=== PATIENT | female | born 1990 | race Two or more races ===

== ENCOUNTER 2018-12-02 17:30 | Emergency (ER) | payer MEDICAID ==
[~2018-12-02] VITALS: Ht 149.9 cm; Wt 90.7 kg
[2018-12-02 19:00] LABS: Basophils # (auto) 0 uL; Basophils % (auto) 0.3 % (0.0-2.0); Eosinophils # (auto) 0.1 uL; Eosinophils % (auto) 1.4 % (0.0-7.0); Hematocrit 41.4 % (36.0-46.0); Hemoglobin 13.7 g/dL (12.2-16.2); Lymphocytes # (auto) 2.2 uL; Lymphocytes % (auto) 24.9 % (10.0-50.0); Mean Corpuscular Hgb Conc. 33.1 g/dL (32.0-36.0); Mean Corpuscular Volume 87.7 fL (80.0-100.0); Monocytes # (auto) 0.6 uL; Monocytes % (auto) 6.7 % (0.0-12.0); Neutrophils # (auto) 5.8 uL; Neutrophils % (auto) 66.7 % (37.0-80.0); Nucleated Red Blood Cells % 0.1 %; Platelet Count (auto) 234 10^3/uL (140-450); Red Blood Cells 4.73 10^6/uL (4.0-5.20); Red Cell Distribution Width 13.5 % (11.8-14.3); White Blood Cell 8.8 10^3/uL (4.4-10.8)
[2018-12-02 19:07] LABS: Albumin 3.7 g/dL (3.4-5.0); BUN/Creatinine Ratio 9.8; Calcium 8.7 mg/dL (8.5-10.1); Potassium 3.7 mmol/L (3.5-5.1)
[2018-12-02 19:10] LABS: Bilirubin, Total 0.3 mg/dL (0.2-1.0); Total Protein 7.6 g/dL (6.4-8.2)
[2018-12-02 20:08] LABS: Urine Bacteria MANY /hpf (None Seen); Urine Blood Negative /uL (Negative); Urine Mucus FEW (None Seen); Urine Specific Gravity 1.009 (1.001-1.035); Urine WBC 4 /hpf (0 - 5)
[2018-12-03] MEDS ORDERED: cefTRIAXone SOD 1,000 MG VL ONE (04:55)
[2018-12-03 05:00] VITALS: BP 135/77
[2018-12-03] MEDS ORDERED: cefTRIAXone SOD 1,000 MG VL IM ONE (05:00)
[2018-12-03] MEDS ORDERED: AZITHROMYCIN 250 MG TAB PO ONE (05:00)
[2018-12-03] MEDS ORDERED: DexAMETHasone SOD PHOS 10MG/1ML VIAL INJ IM ONE (05:00)
== END 2018-12-03 06:28 | disposition home or self-care (01) ==
LOC: ER 17:30
DX: N73.0 Acute parametritis and pelvic cellulitis (principal)
CPT/HCPCS: 36415; 74176; 80053; 81001; 81025; 82150; 83690; 85025; 96372; 99284; J0696; J1100

== ENCOUNTER 2021-05-03 13:50 | Emergency (ER) | payer MEDICAID ==
[~2021-05-03] VITALS: Ht 149.9 cm; Wt 65.3 kg
[2021-05-03 15:25] VITALS: BP 141/69
[2021-05-03] MEDS ORDERED: DexAMETHasone SOD PHOS 10MG/1ML VIAL INJ IM ONE (16:00)
[2021-05-03] MEDS ORDERED: cefTRIAXone SOD 1,000 MG VL IM ONE (16:30)
== END 2021-05-03 16:38 | disposition home or self-care (01) ==
LOC: ER 13:51
DX: J20.9 Acute bronchitis, unspecified (principal); J02.9 Acute pharyngitis, unspecified; Z20.822 Contact with and (suspected) exposure to COVID-19
CPT/HCPCS: 36415; 71046; 87426; 96372; 99284; J0696; J1100

== ENCOUNTER 2021-12-17 22:17 | Emergency (ER) | payer MEDICAID ==
[~2021-12-17] VITALS: Ht 152.4 cm; Wt 103.0 kg
[2021-12-17 23:16] LABS: Basophils # (auto) 0 10 ^3/uL (0-0.2); Basophils % (auto) 0.5 % (0.0-2.0); Eosinophils # (auto) 0.1 10 ^3/uL (0-0.8); Hematocrit 41.8 % (36.0-46.0); Hemoglobin 14.4 g/dL (12.2-16.2); Lymphocytes # (auto) 2.1 10 ^3/uL (0.4-5.4); Lymphocytes % (auto) 29.9 % (10.0-50.0); Mean Corpuscular Hemoglobin 29.3 pg (28.0-32.0); Mean Corpuscular Hgb Conc. 34.4 g/dL (32.0-36.0); Mean Corpuscular Volume 85.2 fL (80.0-100.0); Monocytes # (auto) 0.3 10 ^3/uL (0-1.3); Monocytes % (auto) 4.6 % (0.0-12.0); Neutrophils # (auto) 4.5 10 ^3/uL (1.6-8.6); Red Cell Distribution Width 13.3 % (11.8-14.3); White Blood Cell 7.1 10^3/uL (4.4-10.8)
[2021-12-17 23:24] LABS: INR 0.99 (0.9-1.15); Partial Thromboplastin Time 25.7 sec (23.6-33.0)
[2021-12-17 23:28] LABS: Albumin 3.7 g/dL (3.4-5.0); Magnesium 2.2 mg/dL (1.6-2.6); Potassium 3.6 mmol/L (3.5-5.1)
[2021-12-17 23:32] LABS: BUN/Creatinine Ratio 14.1; Bilirubin, Total 0.4 mg/dL (0.2-1.0); Total Protein 7.6 g/dL (6.4-8.2)
[2021-12-17 23:43] LABS: Beta HCG, Quantitative < 1 mlU/mL (1-3); Thyroid Stimulating Hormone 1.11 uIU/mL (0.358-3.74)
[2021-12-18 09:03] LABS: Urine Bacteria NONE SEEN /hpf (None Seen); Urine Blood Negative /uL (Negative); Urine Specific Gravity 1.016 (1.001-1.035); Urine WBC 1 /hpf (0 - 5)
[2021-12-18] MEDS ORDERED: METH4PAK PO (09:22)
[2021-12-18 10:00] VITALS: BP 126/88
== END 2021-12-18 10:30 | disposition home or self-care (01) ==
LOC: ER 22:17
DX: R06.02 Shortness of breath (principal); R09.1 Pleurisy; Z20.822 Contact with and (suspected) exposure to COVID-19
CPT/HCPCS: 36415; 71045; 80053; 81001; 83735; 83880; 84443; 84484; 84702; 85025; 85610; 85730; 93005

== ENCOUNTER 2022-05-11 11:40 | Emergency (ER) | payer MEDICAID ==
[~2022-05-11] VITALS: Ht 149.9 cm; Wt 80.0 kg
[~2022-05-11 11:40] MED LIST: METH4PAK PO
[2022-05-11] MEDS ORDERED: SODIUM CHLORIDE 0.9% 1,000 ML IVB ONE (12:30)
[2022-05-11] MEDS ORDERED: DONNATAL 5ml ORAL Elix (BELLADONNA ALK-PHENOBARB) PO ONE (12:30)
[2022-05-11] MEDS ORDERED: ALUM & MAG HYDROX-SIMETH LIQ(MAALOX) 30 ML PO ONE (12:30)
[2022-05-11 12:37] LABS: Basophils # (auto) 0 10 ^3/uL (0-0.2); Basophils % (auto) 0.5 % (0.0-2.0); Eosinophils # (auto) 0 10 ^3/uL (0-0.8); Eosinophils % (auto) 0.6 % (0.0-7.0); Hematocrit 41.7 % (36.0-46.0); Hemoglobin 13.8 g/dL (12.2-16.2); Lymphocytes # (auto) 1.6 10 ^3/uL (0.4-5.4); Lymphocytes % (auto) 20.3 % (10.0-50.0); Mean Corpuscular Hemoglobin 28.3 pg (28.0-32.0); Mean Corpuscular Hgb Conc. 33.1 g/dL (32.0-36.0); Mean Corpuscular Volume 85.4 fL (80.0-100.0); Monocytes # (auto) 0.4 10 ^3/uL (0-1.3); Monocytes % (auto) 5.4 % (0.0-12.0); Neutrophils # (auto) 5.6 10 ^3/uL (1.6-8.6); Neutrophils % (auto) 73.2 % (37.0-80.0); Red Blood Cells 4.88 10^6/uL (4.0-5.20); Red Cell Distribution Width 13.2 % (11.8-14.3); White Blood Cell 7.7 10^3/uL (4.4-10.8)
[2022-05-11 12:56] LABS: Albumin 3.5 g/dL (3.4-5.0); Calcium 8.5 mg/dL (8.5-10.1); Potassium 4.2 mmol/L (3.5-5.1)
[2022-05-11 13:00] LABS: BUN/Creatinine Ratio 9.5; Bilirubin, Total 0.4 mg/dL (0.2-1.0); Total Protein 7.7 g/dL (6.4-8.2)
[2022-05-11 13:35] LABS: Urine Bacteria FEW /hpf (None Seen); Urine Blood Negative /uL (Negative); Urine Specific Gravity 1.003 (1.001-1.035); Urine WBC 1 /hpf (0 - 5)
[2022-05-11 23:54] VITALS: BP 128/78
[2022-05-12] MEDS ORDERED: FAMO20TA10 PO (00:06)
== END 2022-05-12 02:24 | disposition home or self-care (01) ==
LOC: ER 11:40
DX: R10.13 Epigastric pain (principal); R11.2 Nausea with vomiting, unspecified
CPT/HCPCS: 36415; 76705; 76856; 80053; 81001; 83605; 83690; 84702; 85025; 96360; 99284; J7030

== ENCOUNTER 2023-07-16 16:18 | Emergency (ER) | payer MEDICAID ==
[~2023-07-16] VITALS: Ht 152.4 cm; Wt 71.4 kg
[~2023-07-16 16:18] MED LIST changes: +FAMO20TA10 PO
[2023-07-16 18:32] VITALS: BP 120/71; PULSE 100; RESP 16; TEMP 98.2; O2SAT 97
[2023-07-16] MEDS ORDERED: LIDOCAINE 1% HCL (LOCAL ANESTH.) INJ 20ML MDV IJ ONE (19:15)
[2023-07-16] MEDS ORDERED: KETOROLAC TROMETH 30 MG/ML 1ML VIAL IV ONE (19:45)
[2023-07-16] MEDS ORDERED: cefTRIAXone SOD 1,000 MG VL IM ONE (19:45)
[2023-07-16] MEDS ORDERED: CEFI400C3 PO (19:57)
[2023-07-16] MEDS ORDERED: CLIN300C70 PO (19:57)
[2023-07-16] MEDS ORDERED: KETOROLAC TROMETH 30 MG/ML 1ML VIAL IM ONE (20:15)
== END 2023-07-16 20:15 | disposition home or self-care (01) ==
LOC: ER 16:18
DX: N75.1 Abscess of Bartholin's gland (principal); Z98.890 Other specified postprocedural states; Z79.899 Other long term (current) drug therapy
CPT/HCPCS: 56420; 96372; 99284; J0696; J1885; J2001

== ENCOUNTER 2025-01-26 03:37 | Inpatient (IN) | payer MEDICAID, OTHER ==
[~2025-01-26] VITALS: Ht 152.4 cm; Wt 82.9 kg
[~2025-01-26 03:37] MED LIST changes: +CEFI400C3 PO; +CLIN1CAP70 PO
--- NOTE | 2025-01-26 04:20 | ED.PDOC ---
GI ASSESSMENT HPI Comments C/C: RIGHT SIDE UPPER ABDOMINAL PAIN FOR THE PAST 2 DAYS. PATIENT STATES THAT SHE HAS PMH OF A GASTRIC SLEEVE AND USUALLY BURPS A LOT. ALL VSS. Does report some nausea without vomiting. Denies chest pain, difficulty breathing, shortness of breath, diarrhea, recent travel or known ill contacts. Reports no fevers or chills. Chief Complaint: Abdominal Pain Time Seen by MD: 04:06 Primary Care Provider: UNKNOWN Reviewed Notes: Nurses Notes, Medications, Allergies Allergies: Coded Allergies: NO KNOWN ALLERGIES (Unverified , 03/26/15) Home Meds Active Scripts Docusate Sodium (Colace) 100 Mg Cap, 1 CAP PO BID, #30 CAP Prov:DEXTER MUSA HISTORY FACULTY MEMBER 01/30/25 Amoxicillin & Pot Clavulanate (Augmentin) 500 Mg Tab, 1 TAB PO BID for 7 Days, #14 TAB Prov:DEXTER MUSA HISTORY FACULTY MEMBER 01/30/25 Oxycodone W/ Acetaminophen (Percocet 5/325MG) 1 Tab Tb, 1 TAB PO TID for 5 Days, #15 TAB Prov:DEXTER MUSA HISTORY FACULTY MEMBER 01/30/25 Discontinued Scripts Clindamycin Hcl (Clindamycin Hcl) 300 Mg Cap, 300 MG PO QID for 7 Days, #28 CAP Prov:ADELFO MEJIA 07/16/23 Cefixime (Cefixime) 400 Mg Cap, 400 MG PO BID for 7 Days, #14 CAP Prov:ADELFO MEJIA 07/16/23 Famotidine (PEPCID TABLET) 20 Mg Tb, 1 TAB PO BID PRN, #60 TAB 5 Refills Prov:YECENIA HARP 05/12/22 Methylprednisolone (Medrol Dosepak) 4 Mg Dinesh, 4 MG PO UD for 5 Days, #21 TAB UAD Prov:RYAN BOOKER MD 12/18/21 Information Source: Patient Mode of Arrival: Ambulatory Past Medical History PAST MEDICAL HISTORY: Denies Surgical History: EARLY HEAD START DIRECTOR History: No Pertinent EARLY HEAD START DIRECTOR History Family History Family History: No family hx of HTN Social History Smoker: Non-Smoker Alcohol: Denies ETOH Use Drugs: Denies Drug Use Lives In: Home Constitutional: denies: chills, diaphoresis, fatigue, fever, malaise, sweats, weakness, others EENTM: denies: blurred vision, double vision, ear bleeding, ear discharge, ear drainage, ear pain, ear ringing, eye pain, eye redness, hearing loss, mouth pain, mouth swelling, nasal discharge, nose bleeding, nose congestion, nose pain, photophobia, tearing, throat pain, throat swelling, voice changes, others Respiratory: denies: cough, hemoptysis, orthopnea, SOB at rest, shortness of breath, SOB with excertion, stridor, wheezing, others Cardiovascular: denies: chest pain, dizzy spells, diaphoresis, Dyspnea on exertion, edema, irregular heart beat, left arm pain, lightheadedness, palpitations, PND, syncope, others Gastrointestinal: reports: abdominal pain, nausea; denies: abdomen distended, blood streaked bowels, constipated, diarrhea, dysphagia, difficulty swallowing, hematemesis, melena, poor appetite, poor fluid intake, rectal bleeding, rectal pain, vomiting, others Genitourinary: denies: abnormal vagina bleeding, burning, dyspareunia, dysuria, flank pain, frequency, hematuria, incontinence, pain, , vagina discharge, urgency, others Neurological: denies: dizziness, fainting, headache, left sided numbness, left sided weakness, numbness, paresthesia, pre-existing deficit, right sided numbness, right sided weakness, seizure, speech problems, tingling, tremors, weakness, others Musculoskeletal: denies: back pain, gout, joint pain, joint swelling, muscle p ain, muscle stiffness, neck pain, others Integumetry: denies: bruises, change in color, change in hair/nails, dryness, laceration, lesions, lumps, rash, wounds, others Allergic/Immunocompromised: denies: Difficulty Healing, Frequent Infections, Hives, Itching, others Hematologic/Lymphatic: denies: anemia, blood clots, easy bleeding, easy bruising, swollen glands, others Endocrine: denies: excessive hunger, excessive sweating, excessive thirst, excessive urination, flushing, intolerance to cold, intolerance to heat, unexplained weight gain, unexplained weight loss, others Psychiatric: denies: anxiety, bipolar disorder, depression, hopeless, panic disorder, schizophrenia, sleepless, suicidal, others Physical Exam General Appearance: Moderate Distress, Normal HEENT: Pharynx Normal Neck: Full Range of Motion, Non-Tender Respiratory: Lungs Clear, No Respiratory Distress, Normal Breath Sounds Cardiovascular: No Edema, No JVD, No Murmur, No Gallop, Normal Peripheral Pulses, Regular Rate/Rhythm Breast Exam: Deferred Gastrointestinal: Diffuse, No Organomegaly, No Pulsatile Mass, Normal Bowel Sounds, Soft, Tenderness (Right upper, mid and lower quadrant) Genitalia: Deferred Pelvic: Deferred Rectal: Deferred Extremities: No calf tenderness, Normal capillary refill, Normal inspection, Normal range of motion, Non-tender, No pedal edema Musculoskeletal : Apperance: Normal Neurologic: Alert, bench inspector II-XII nml as Tested, No Motor Deficits, Normal Affect, Normal Mood, No Sensory Deficits Cerebellar Function: NOT DONE Reflexes: NOT DONE Skin: Dry, Normal Color, Warm Peripheral Pulses: 3+ Radial (R), 3+ Radial (L) Lymphatic: No Adenopathy Was a procedure done? Was a procedure done?: No GI differential Dx Differential Diagnosis: Cholangitis, Cholecystitis, Constipation, Diverticular disease, Esophagitis, Gastritis/PUD, Gastroenteritis, Hernia, UTI X-Ray, Labs, Meds, VS Vital Signs Date Time Temp Pulse Resp B/P (MAP) Pulse Ox O2 Delivery O2 Flow Rate FiO2 01/26/25 05:50 98.4 65 12 137/89 (105) 98 98.4 01/26/25 04:30 Room Air* 0 21 01/26/25 03:50 98.8 75 16 125/71 (89) 96 98.8 Lab Test 01/26/25 07:30 01/26/25 04:22 Range/Units Urine Color Light-yellow Yellow Urine Clarity Clear Clear Urine pH 7.0 5.0-9.0 Urine Specific [place] 1.018 1.001-1.035 Urine Protein Negative Negative Urine Ketones Negative Negative Urine Blood Negative Negative /uL Urine Nitrite Negative Negative Urine Bilirubin Negative Negative Urine Urobilinogen Normal Negative mg/dL Urine Leukocyte Esterase Negative Negative /uL Urine RBC 5 0 - 4 /hpf Urine Microscopic WBC 1 0-5 /HPF Urine Squamous Epithelial Cells Few <5 /hpf Urine Bacteria None seen None Seen /hpf Urine Mucus Few None Seen Urine Glucose Normal Normal mg/dL White Blood Count 9.5 4.4-10.8 10^3/uL Red Blood Count 4.82 4.0-5.20 10^6/uL Hemoglobin 14.2 12.2-16.2 g/dL Hematocrit 41.6 36.0-46.0 % Mean Corpuscular Volume 86.5 80.0-100.0 fL Mean Corpuscular Hemoglobin 29.4 28.0-32.0 pg Mean Corpuscular Hemoglobin Concent 34.0 32.0-36.0 g/dL Red Cell Distribution Width 12.7 11.8-14.3 % Platelet Count 282 140-450 10^3/uL Mean Platelet Volume 8.6 6.9-10.8 fL Neutrophils (%) (Auto) 59.6 37.0-80.0 % Lymphocytes (%) (Auto) 33.8 10.0-50.0 % Monocytes (%) (Auto) 4.3 0.0-12.0 % Eosinophils (%) (Auto) 1.6 0.0-7.0 % Basophils (%) (Auto) 0.7 0.0-2.0 % Neutrophils # (Auto) 5.7 1.6-8.6 10 ^3/uL Lymphocytes # (Auto) 3.2 0.4-5.4 10 ^3/uL Monocytes # (Auto) 0.4 0-1.3 10 ^3/uL Eosinophils # (Auto) 0.1 0-0.8 10 ^3/uL Basophils # (Auto) 0.1 0-0.2 10 ^3/uL Nucleated Red Blood Cells 0.1 % Prothrombin Time 10.0 9.3-11.8 sec Prothrombin Time INR 0.94 0.9-1.15 Activated Partial Thromboplast Time 24.9 24.5-34.5 SEC Sodium Level 140 136-145 mmol/L Potassium Level 4.3 3.5-5.1 mmol/L Chloride Level 104 98-107 mmol/L Carbon Dioxide Level 28 20-31 mmol/L Anion Gap 8 5-15 Blood Urea Nitrogen 8 L 9-23 mg/dL Creatinine 0.73 0.550-1.02 mg/dL Glomerular Filtration Rate Calc 112 >90 mL/min BUN/Creatinine Ratio 11.0 10.0-20.0 Serum Glucose 104 74-106 mg/dL Calcium Level 10.5 H 8.7-10.4 mg/dL Total Bilirubin 0.4 0.2-1.0 mg/dL Aspartate Amino Transferase (AST) 13 13-40 U/L Alanine Aminotransferase (ALT) 16 7-40 U/L Alkaline Phosphatase 81 46-116 U/L Total Protein 7.4 5.7-8.2 g/dL Albumin 4.8 3.2-4.8 g/dL Lipase 47 12-53 U/L Beta HCG, Quantitative 0.6 L 1.5-4.2 mIU/mL Patient alert. Came in for abdominal pain. Vitals stable. Answering questions. Lipase within normal limits. Liver function within normal limits. Possibly need HIDA scan. Ultrasound does reveal thickened gallbladder possible acute cholecystitis. WBC within normal limits. Continues to have abdominal pain. Was given morphine. Was given Zofran. Continue to monitor. X-Ray, Labs, Meds, VS Comment CT ABDOMEN SHOWS DISTENDED GALLBLADDER RECOMMEND RIGHT UPPER QUADRANT ULTRASOUND Time of 1ST Reevaluation: 04:20 Reevaluation 1ST: Unchanged Time of 2ND Reevaluation: 06:07 Reevaluation 2ND: Improved Patient Education/Counseling: Diagnosis, Treatment, Prognosis, Need For Follow Up Family Education/Counseling: No Family Present Departure 1 Departure Time of Disposition: 07:33 Impression: Primary Impression: Acute abdominal pain Additional Impression: Gallbladder disease Disposition: ADMITTED INPATIENT Admit to: Med Surg Condition: Guarded e-Prescriptions Docusate Sodium (Colace) 100 Mg Cap 1 CAP PO BID, #30 CAP Prov: DEXTER MUSA HISTORY FACULTY MEMBER 01/30/25 Amoxicillin & Pot Clavulanate (Augmentin) 500 Mg Tab 1 TAB PO BID for 7 Days, #14 TAB Prov: DEXTER MUSA HISTORY FACULTY MEMBER 01/30/25 Oxycodone W/ Acetaminophen (Percocet 5/325MG) 1 Tab Tb 1 TAB PO TID for 5 Days, #15 TAB Prov: DEXTER MUSA HISTORY FACULTY MEMBER 01/30/25 Critical Care Note Critical Care Time?: No Stability Stability form required: No Heart Score Heart Score: Heart Score Response (Comments) Value History N/A 0 EKG N/A 0 Age N/A 0 Risk Factors N/A 0 Troponin N/A 0 Total 0 SIVA HARMON January 26, 2025 04:20 RYAN BOOKER MD January 26, 2025 07:33
[2025-01-26 04:38] LABS: Basophils # (auto) 0.1 10 ^3/uL (0-0.2); Basophils % (auto) 0.7 % (0.0-2.0); Eosinophils # (auto) 0.1 10 ^3/uL (0-0.8); Eosinophils % (auto) 1.6 % (0.0-7.0); Hematocrit 41.6 % (36.0-46.0); Hemoglobin 14.2 g/dL (12.2-16.2); Lymphocytes # (auto) 3.2 10 ^3/uL (0.4-5.4); Lymphocytes % (auto) 33.8 % (10.0-50.0); Mean Corpuscular Hemoglobin 29.4 pg (28.0-32.0); Mean Corpuscular Volume 86.5 fL (80.0-100.0); Monocytes # (auto) 0.4 10 ^3/uL (0-1.3); Monocytes % (auto) 4.3 % (0.0-12.0); Neutrophils # (auto) 5.7 10 ^3/uL (1.6-8.6); Neutrophils % (auto) 59.6 % (37.0-80.0); Nucleated Red Blood Cells % 0.1 %; Platelet Count (auto) 282 10^3/uL (140-450); Red Blood Cells 4.82 10^6/uL (4.0-5.20); Red Cell Distribution Width 12.7 % (11.8-14.3); White Blood Cell 9.5 10^3/uL (4.4-10.8)
[2025-01-26 05:06] LABS: Alanine Aminotransferase 16 U/L (7-40); Alkaline Phosphatase 81 U/L (46-116); Anion Gap 8 (5-15); Bilirubin, Total 0.4 mg/dL (0.2-1.0); Carbon Dioxide 28 mmol/L (20-31); Chloride 104 mmol/L (98-107); Glucose 104 mg/dL (74-106); Lipase 47 U/L (12-53); Potassium 4.3 mmol/L (3.5-5.1); Sodium 140 mmol/L (136-145); Total Protein 7.4 g/dL (5.7-8.2)
[2025-01-26 05:13] LABS: Albumin 4.8 g/dL (3.2-4.8); Aspartate Aminotransferase 13 U/L (13-40); Blood Urea Nitrogen 8 mg/dL (9-23); Calcium 10.5 mg/dL (8.7-10.4)
--- NOTE | 2025-01-26 05:57 | DVH ---
Exam: CT CT AB PEL WO CON-NO ORAL OR IV History: RIGHT UPPER QUADRANT ABDOMINAL PAIN Comparison Study: None Technique: Multidetector spiral CT of the abdomen was performed from lung bases to pubic symphysis. Imaging was performed without IV contrast. Axial, coronal and sagittal multiplanar reformats were ob tained from the axial data set by the technologist. Radiation Dose : CTDI volume is 14.09 mGy. Dose-length product is 778.58 mGy*cm Findings: Evaluation of solid organs is limited due to lack of intravenous contrast use. Lung Bases: No acute or significant lung base finding. Normal heart size. No pleural or pericardial effusion. Liver: Hepatic steatosis. Gallbladder and Biliary Tree: DISTENDED GALLBLADDER. Spleen: Unremarkable Pancreas: The pancreas is grossly normal in appearance. Adrenal Glands: Unremarkable Kidneys: Kidneys are grossly normal without calculi or hydronephrosis. Bladder: Grossly unremarkable for degree of distention. Bowel: The stomach is grossly normal in appearance. Small bowel and colon are normal in caliber and d istribution. Normal appendix. Ascites: Absent Lymphadenopathy: No mesenteric, retroperitoneal or periportal lymphadenopathy. Abdominal Wall and Mesentery: Unremarkable. Vasculature: The visualized abdominal aorta is normal in size and caliber. Evaluation of abdominal a nd pelvic vessels is limited due to lack of intravenous contrast. Pelvic Organs: Unremarkable Musculoskeletal: No aggressive focal bony lesions, acute fractures or dislocation. IMPRESSION: Distended gallbladder. Right upper quadrant ultrasound recommended. END IMPRESSION: Radiation optimization: All CT scans at this facility use at least one of these dose optimization herman hniques: automated exposure control mA and/or kV adjustment per patient size (includes targeted exam s where dose is matched to clinical indication) or iterative reconstruction.
--- NOTE | 2025-01-26 07:23 | DVH ---
INDICATION: Right upper quadrant DISTENDED GALLBLADDER TECHNIQUE: Multiple real-time sonographic images of the abdomen were obtained. COMPARISON: GALLBLADDER on DOS: 05/11/22, GBUS on DOS: 05/11/22 FINDINGS: The liver is homogenous in echogenicity. The liver measures 14.1 cm. No intrahepatic bilia ry ductal dilatation is noted. The gallbladder wall measures 0.4 cm compatible with gallbladder wall thickening. Multiple gallstone s. The common duct measures 0.3 cm and is unremarkable. No pericholecystic fluid is noted. Colbert's sign not documented. The right kidney measures 9.7 cm. No hydronephrosis. The pancreas is not well visualized due to obscuration from bowel gas. The visualized portions of the IVC and aorta are grossly unremarkable. IMPRESSION: 1. Multiple gallstones and gallbladder wall thickening. Acute cholecystitis is not excluded.
[2025-01-26 07:30] LABS: Urine Bacteria None Seen /hpf (None Seen)
[2025-01-26 07:55] LABS: Urine Blood Negative /uL (Negative); Urine Clarity Clear (Clear); Urine Color Light-Yellow (Yellow); Urine Mucus FEW (None Seen); Urine Protein, UAD Negative (Negative); Urine Specific Gravity 1.018 (1.001-1.035); Urine Squamous Epithelial Cell FEW /hpf (<5); Urine Urobilinogen Normal (Negative); Urine WBC 1 /HPF (0-5)
[2025-01-26] MEDS ORDERED: DOCUSATE SOD 100 MG CAP PO PRN (08:00)
[2025-01-26] MEDS: MORPHINE SULFATE 4 MG/ML SYR/VIAL IV ONE (08:15)
[2025-01-26 08:31] VITALS: BP 124/73; PULSE 65; RESP 18; TEMP 98.3; O2SAT 99
--- NOTE | 2025-01-26 08:38 | DVHHP2 ---
History of Present Illness Reason for Visit: Abdominal pain History of Present Illness Jeny Chen is a 34-year-old female with past medical history of gastric sleeve, who came to the hospital for abdominal pain. Patient states she began having pain in her RUQ yesterday around 0900. At first she contributed the pain to her gastric sleeve, but when it continued and worsened she became concerned and came to the hospital. She states the pain worsens when she eats and radiates to her back. She last ate yesterday around 1800. She began having nausea and vomiting yesterday about 2100, states she has vomited about 3 times since last night. She states that since she had the gastric sleeve she has abdominal pain at times and belches frequently. Past Surgical History: (x 1), Other (gastric sleeve) Smoke: No ALCOHOL: none Drugs: None Lives: with Family Domestic Violence: Neg Review of Systems Constitutional: No: Fever, Chills, Sweats, Weakness, Malaise, Other Eyes: No: Pain, Vision change, Conjunctivae inflammation, Eyelid inflammation, Other, Redness ENT: No: Ear pain, Ear discharge, Nose pain, Nose discharge, Nose congestion, Mouth pain, Mouth swelling, Throat pain, Throat swelling, Other Respiratory: No: Cough, Dry, Shortness of breath, SOB with excertion, Wheezing, Hemoptysis, Pleuritic Pain, Sputum, Wheezing, Other Cardiovascular: No: Chest Pain, Palpitations, Orthopnea, Paroxysmal Noc. Dyspnea, Edema, Lt Headedness, Other Gastrointestinal: Nausea, Vomiting, Abdominal Pain; No: Diarrhea, Constipation, Melena, Hematochezia, Other Genitourinary: No Dysuria, No Frequency, No Incontinence, No Hematuria, No Retention, No Other Musculoskeletal: No: other, neck pain, shoulder pain, arm pain, back pain, hand pain, leg pain, foot pain Skin: No: Rash, Lesions, Jaundice, Bruising, Other Neurological: No: Weakness, Numbness, Incoordination, Change in speech, Confusion, Seizures, Other Allergies: Coded Allergies: NO KNOWN ALLERGIES (Unverified , 03/26/15) Exam Vital Signs Vital Signs Date Time Temp Pulse Resp B/P (MAP) Pulse Ox O2 Delivery O2 Flow Rate FiO2 01/26/25 05:50 98.4 65 12 137/89 (105) 98 98.4 01/26/25 04:30 Room Air* 0 21 General Appearance: Alert, Oriented X3, Cooperative, mild distress HEENT: Atraumatic, PERRLA Respiratory: Clear to auscultation, Normal air movement Cardiovascular: Regular rate, Normal S1, Normal S2 Abdominal: Normal bowel sounds, Soft, Other (RUQ pain) Extremities: No clubbing, No cyanosis, No edema, Normal pulses, No tender ness/swelling Skin: No rashes, No breakdown, No significant lesion Neuro: Normal gait, Normal speech, Strength at 5/5 X4 ext Psych/Mental Status: Mental status NL, Mood NL Labs/Xrays Labs Test 01/26/25 07:30 01/26/25 04:22 Range/Units Urine Color Light-yellow Yellow Urine Clarity Clear Clear Urine pH 7.0 5.0-9.0 Urine Specific [place] 1.018 1.001-1.035 Urine Protein Negative Negative Urine Ketones Negative Negative Urine Blood Negative Negative /uL Urine Nitrite Negative Negative Urine Bilirubin Negative Negative Urine Urobilinogen Normal Negative mg/dL Urine Leukocyte Esterase Negative Negative /uL Urine RBC 5 0 - 4 /hpf Urine Microscopic WBC 1 0-5 /HPF Urine Squamous Epithelial Cells Few <5 /hpf Urine Bacteria None seen None Seen /hpf Urine Mucus Few None Seen Urine Glucose Normal Normal mg/dL White Blood Count 9.5 4.4-10.8 10^3/uL Red Blood Count 4.82 4.0-5.20 10^6/uL Hemoglobin 14.2 12.2-16.2 g/dL Hematocrit 41.6 36.0-46.0 % Mean Corpuscular Volume 86.5 80.0-100.0 fL Mean Corpuscular Hemoglobin 29.4 28.0-32.0 pg Mean Corpuscular Hemoglobin Concent 34.0 32.0-36.0 g/dL Red Cell Distribution Width 12.7 11.8-14.3 % Platelet Count 282 140-450 10^3/uL Mean Platelet Volume 8.6 6.9-10.8 fL Neutrophils (%) (Auto) 59.6 37.0-80.0 % Lymphocytes (%) (Auto) 33.8 10.0-50.0 % Monocytes (%) (Auto) 4.3 0.0-12.0 % Eosinophils (%) (Auto) 1.6 0.0-7.0 % Basophils (%) (Auto) 0.7 0.0-2.0 % Neutrophils # (Auto) 5.7 1.6-8.6 10 ^3/uL Lymphocytes # (Auto) 3.2 0.4-5.4 10 ^3/uL Monocytes # (Auto) 0.4 0-1.3 10 ^3/uL Eosinophils # (Auto) 0.1 0-0.8 10 ^3/uL Basophils # (Auto) 0.1 0-0.2 10 ^3/uL Nucleated Red Blood Cells 0.1 % Sodium Level 140 136-145 mmol/L Potassium Level 4.3 3.5-5.1 mmol/L Chloride Level 104 98-107 mmol/L Carbon Dioxide Level 28 20-31 mmol/L Anion Gap 8 5-15 Blood Urea Nitrogen 8 L 9-23 mg/dL Creatinine 0.73 0.550-1.02 mg/dL Glomerular Filtration Rate Calc 112 >90 mL/min BUN/Creatinine Ratio 11.0 10.0-20.0 Serum Glucose 104 74-106 mg/dL Calcium Level 10.5 H 8.7-10.4 mg/dL Total Bilirubin 0.4 0.2-1.0 mg/dL Aspartate Amino Transferase (AST) 13 13-40 U/L Alanine Aminotransferase (ALT) 16 7-40 U/L Alkaline Phosphatase 81 46-116 U/L Total Protein 7.4 5.7-8.2 g/dL Albumin 4.8 3.2-4.8 g/dL Lipase 47 12-53 U/L Exam: CT CT AB PEL WO CON-NO ORAL OR IV Findings: Evaluation of solid organs is limited due to lack of intravenous contrast use. Lung Bases: No acute or significant lung base finding. Normal heart size. No pleural or pericardial effusion. Liver: Hepatic steatosis. Gallbladder and Biliary Tree: DISTENDED GALLBLADDER. Spleen: Unremarkable Pancreas: The pancreas is grossly normal in appearance. Adrenal Glands: Unremarkable Kidneys: Kidneys are grossly normal without calculi or hydronephrosis. Bladder: Grossly unremarkable for degree of distention. Bowel: The stomach is grossly normal in appearance. Small bowel and colon are normal in caliber and distribution. Normal appendix. Ascites: Absent Lymphadenopathy: No mesenteric, retroperitoneal or periportal lymphadenopathy. Abdominal Wall and Mesentery: Unremarkable. Vasculature: The visualized abdominal aorta is normal in size and caliber. Evaluation of abdominal and pelvic vessels is limited due to lack of intravenous contrast. Pelvic Organs: Unremarkable Musculoskeletal: No aggressive focal bony lesions, acute fractures or dislocation. IMPRESSION: Distended gallbladder. Right upper quadrant ultrasound recommended. TECHNIQUE: Multiple real-time sonographic images of the abdomen were obtained. FINDINGS: The liver is homogenous in echogenicity. The liver measures 14.1 cm. No intrahepatic biliary ductal dilatation is noted. The gallbladder wall measures 0.4 cm compatible with gallbladder wall thickening. Multiple gallstones. The common duct measures 0.3 cm and is unremarkable. No pericholecystic fluid is noted. Colbert's sign not documented. The right kidney measures 9.7 cm. No hydronephrosis. The pancreas is not well visualized due to obscuration from bowel gas. The visualized portions of the IVC and aorta are grossly unremarkable. IMPRESSION: 1. Multiple gallstones and gallbladder wall thickening. Acute cholecystitis is not excluded. Assessment/Plan Assessment/Plan Assessment: Cholelithiasis, Possible cholecystis, History of gastric sleeve, Plan: Admit to Med-Surg, GI consult, Surgical consult, PT/PTT, Chest X-ray, NPO, IV hydration, Pain management, Antiemetics, Plan discussed with: Patient Date of Service: January 26, 2025 Billing Provider: KATELYN STOKES Common Visit Codes: [id number] INP/OBS CARE (MOD) KATELYN STOKES January 26, 2025 08:38
[2025-01-26] MEDS: SODIUM CHLORIDE 0.9% 1,000 ML IV ONE (08:45)
[2025-01-26] MEDS: ONDANSETRON HCL 4 MG/2 ML VIAL IV ONE (08:52)
[2025-01-26] MEDS: MORPHINE SULFATE INJ 2 MG/ml SYRG IV PRN (08:54)
[2025-01-26 09:08] LABS: INR 0.94 (0.9-1.15); Partial Thromboplastin Time 24.9 SEC (24.5-34.5)
[2025-01-26] MEDS: SODIUM CHLORIDE 0.9% 1,000 ML IV SCH (09:18)
--- NOTE | 2025-01-26 10:05 | DVH ---
CHEST RADIOGRAPH Indication: SOB Technique: Single frontal view of the chest was obtained Comparison: CHEST PORTABLE on DOS: 12/18/21, CXRP on DOS: 12/18/21 FINDINGS: Lines and Tubes: None Lungs: Left perihilar airspace disease suspicious for pneumonia. Right lung is clear. Pleura: No effusion. No pneumothorax. Cardiomediastinal contours: Unremarkable Bones: No acute osseous abnormality. IMPRESSION: 1. Left perihilar airspace disease suspicious for pneumonia in the appropriate clinical setting.
[2025-01-26 13:00] VITALS: BP 109/78; PULSE 58; RESP 19; TEMP 98.3; O2SAT 100
[2025-01-26 17:00] VITALS: BP 114/75; PULSE 65; RESP 18; TEMP 98.9; O2SAT 99
[2025-01-26 18:30] VITALS: BP 127/75; PULSE 63; RESP 17; TEMP 99.5; O2SAT 95
[2025-01-26] MEDS: ONDANSETRON HCL 4 MG/2 ML VIAL IV PRN (18:45)
--- NOTE | 2025-01-26 19:57 | DVHINCON2 ---
Date of service: January 26, 2025 Referring Physician Ivon Hendrix Reason for Consultation RUQ pain and cholelithiasis History of Present Illness Jeny Chen is a 34-year-old female with past medical history of gastric sleeve, who came to the hospital for abdominal pain. Patient states she began having pain in her RUQ yesterday around 0900. At first she contributed the pain to her gastric sleeve, but when it continued and worsened she became concerned and came to the hospital. She states the pain worsens when she eats and radiates to her back. She last ate yesterday around 1800. She began having nausea and vomiting yesterday about 2100, states she has vomited about 3 times since last night. She states that since she had the gastric sleeve she has abdominal pain at times and belches frequently. Past Surgical History Past Surgical History: (x 1), Other (gastric sleeve) Family History: Cardiovascular disease G8 MOTHER Cerebrovascular accident (CVA) G8 MOTHER Diabetes mellitus G8 MOTHER Hypertension G8 MOTHER Allergies: Coded Allergies: NO KNOWN ALLERGIES (Unverified , 03/26/15) Home Meds Discontinued Scripts Clindamycin Hcl (Clindamycin Hcl) 300 Mg Cap, 300 MG PO QID for 7 Days, #28 CAP Prov:ADELFO MEJIA PAC 07/16/23 Cefixime (Cefixime) 400 Mg Cap, 400 MG PO BID for 7 Days, #14 CAP Prov:ADELFO MEJIA PAC 07/16/23 Famotidine (PEPCID TABLET) 20 Mg Tb, 1 TAB PO BID PRN, #60 TAB 5 Refills Prov:YECENIA HARP 05/12/22 Methylprednisolone (Medrol Dosepak) 4 Mg Dinesh, 4 MG PO UD for 5 Days, #21 TAB UAD Prov:RYAN BOOKER MD 12/18/21 Current Medications Current Medications Medications (Trade) Dose Ordered Sig/Myla Route PRN Reason Start Time Stop Time Status Last Admin Acetaminophen/ Hydrocodone Bitart ([place] 5/325MG Tab) 1 tab Q4HP PRN PO MODERATE PAIN (4-6 PAIN SCALE) 01/26/25 08:00 Ondansetron HCl (Zofran) 4 mg Q4HP PRN IV NAUSEA / VOMITING 01/26/25 08:00 01/26/25 18:45 Docusate Sodium (Colace Capsule) 100 mg BIDPRN PRN PO FOR CONSTIPATION 01/26/25 08:00 Acetaminophen (Tylenol Tablet) 650 mg Q6HP PRN PO PAIN SCALE 1-3 OR TEMP>100.4 01/26/25 08:00 Morphine Sulfate 2 mg Q4HPRN PRN IV SEVERE PAIN (7-10 PAIN SCALE) 01/26/25 08:00 01/26/25 08:54 Sodium Chloride 1,000 ml @ 125 mls/hr Q8H IV 01/26/25 08:15 01/26/25 16:34 Vital Signs Vital Signs Date Time Temp Pulse Resp B/P (MAP) Pulse Ox O2 Delivery O2 Flow Rate FiO2 01/26/25 18:30 99.5 63 17 127/75 (92) 95 99.5 01/26/25 08:31 Room Air* 0 21 Physical Exam General Appearance: Alert, Oriented X3, Cooperative, mild distress HEENT: Atraumatic, PERRLA Respiratory: Clear to auscultation, Normal air movement Cardiovascular: Regular rate, Normal S1, Normal S2 Abdominal: Normal bowel sounds, Soft, Other (RUQ pain) Extremities: No clubbing, No cyanosis, No edema, Normal pulses, No tenderness/swelling Skin: No rashes, No breakdown, No significant lesion Neuro: Normal gait, Normal speech, Strength at 5/5 X4 ext Psych/Mental Status: Mental status NL, Mood NL Labs/Diagnostic Data Labs Test 01/26/25 07:30 01/26/25 04:22 Range/Units Urine Color Light-yellow Yellow Urine Clarity Clear Clear Urine pH 7.0 5.0-9.0 Urine Specific [place] 1.018 1.001-1.035 Urine Protein Negative Negative Urine Ketones Negative Negative Urine Blood Negative Negative /uL Urine Nitrite Negative Negative Urine Bilirubin Negative Negative Urine Urobilinogen Normal Negative mg/dL Urine Leukocyte Esterase Negative Negative /uL Urine RBC 5 0 - 4 /hpf Urine Microscopic WBC 1 0-5 /HPF Urine Squamous Epithelial Cells Few <5 /hpf Urine Bacteria None seen None Seen /hpf Urine Mucus Few None Seen Urine Glucose Normal Normal mg/dL White Blood Count 9.5 4.4-10.8 10^3/uL Red Blood Count 4.82 4.0-5.20 10^6/uL Hemoglobin 14.2 12.2-16.2 g/dL Hematocrit 41.6 36.0-46.0 % Mean Corpuscular Volume 86.5 80.0-100.0 fL Mean Corpuscular Hemoglobin 29.4 28.0-32.0 pg Mean Corpuscular Hemoglobin Concent 34.0 32.0-36.0 g/dL Red Cell Distribution Width 12.7 11.8-14.3 % Platelet Count 282 140-450 10^3/uL Mean Platelet Volume 8.6 6.9-10.8 fL Neutrophils (%) (Auto) 59.6 37.0-80.0 % Lymphocytes (%) (Auto) 33.8 10.0-50.0 % Monocytes (%) (Auto) 4.3 0.0-12.0 % Eosinophils (%) (Auto) 1.6 0.0-7.0 % Basophils (%) (Auto) 0.7 0.0-2.0 % Neutrophils # (Auto) 5.7 1.6-8.6 10 ^3/uL Lymphocytes # (Auto) 3.2 0.4-5.4 10 ^3/uL Monocytes # (Auto) 0.4 0-1.3 10 ^3/uL Eosinophils # (Auto) 0.1 0-0.8 10 ^3/uL Basophils # (Auto) 0.1 0-0.2 10 ^3/uL Nucleated Red Blood Cells 0.1 % Prothrombin Time 10.0 9.3-11.8 sec Prothrombin Time INR 0.94 0.9-1.15 Activated Partial Thromboplast Time 24.9 24.5-34.5 SEC Sodium Level 140 136-145 mmol/L Potassium Level 4.3 3.5-5.1 mmol/L Chloride Level 104 98-107 mmol/L Carbon Dioxide Level 28 20-31 mmol/L Anion Gap 8 5-15 Blood Urea Nitrogen 8 L 9-23 mg/dL Creatinine 0.73 0.550-1.02 mg/dL Glomerular Filtration Rate Calc 112 >90 mL/min BUN/Creatinine Ratio 11.0 10.0-20.0 Serum Glucose 104 74-106 mg/dL Calcium Level 10.5 H 8.7-10.4 mg/dL Total Bilirubin 0.4 0.2-1.0 mg/dL Aspartate Amino Transferase (AST) 13 13-40 U/L Alanine Aminotransferase (ALT) 16 7-40 U/L Alkaline Phosphatase 81 46-116 U/L Total Protein 7.4 5.7-8.2 g/dL Albumin 4.8 3.2-4.8 g/dL Lipase 47 12-53 U/L Beta HCG, Quantitative 0.6 L 1.5-4.2 mIU/mL Gallbladder USG IMPRESSION: 1. Multiple gallstones and gallbladder wall thickening. Acute cholecystitis is not excluded. CT SCAN ABD PELVIS IMPRESSION: Distended gallbladder. Right upper quadrant ultrasound recommended. Problems(with codes): (1) Cholelithiases (2) Gallbladder disease (3) Acute abdominal pain (4) Bartholin's gland abscess Plan/Recommendation Plan Patient is currently on a clear liquid diet We will give her pain control IV PPI ;Possible EGD if symptoms persist IV antibiotics Surgical consult to evaluate her for biliary colic possible lap choly Plan discussed with: Patient, Other (ER Nurse) PIETRO CHOW MD January 26, 2025 19:57
[2025-01-26 20:00] VITALS: PULSE 71; RESP 20; O2SAT 98
[2025-01-26 21:00] VITALS: BP 123/75; PULSE 71; RESP 20; TEMP 99.1; O2SAT 98
[2025-01-27 01:00] VITALS: BP 100/63; PULSE 79; RESP 20; TEMP 98; O2SAT 99
[2025-01-27 05:00] VITALS: BP 90/58; PULSE 62; RESP 20; TEMP 97.9; O2SAT 97
[2025-01-27 06:13] LABS: Basophils # (auto) 0 10 ^3/uL (0-0.2); Basophils % (auto) 0.4 % (0.0-2.0); Eosinophils # (auto) 0.2 10 ^3/uL (0-0.8); Eosinophils % (auto) 2.3 % (0.0-7.0); Hemoglobin 12.2 g/dL (12.2-16.2); Lymphocytes # (auto) 2.8 10 ^3/uL (0.4-5.4); Mean Corpuscular Hemoglobin 30.2 pg (28.0-32.0); Mean Corpuscular Volume 86.3 fL (80.0-100.0); Monocytes # (auto) 0.3 10 ^3/uL (0-1.3); Monocytes % (auto) 4.9 % (0.0-12.0); Neutrophils # (auto) 3.6 10 ^3/uL (1.6-8.6); Neutrophils % (auto) 51.4 % (37.0-80.0); Platelet Count (auto) 209 10^3/uL (140-450); Red Blood Cells 4.06 10^6/uL (4.0-5.20); Red Cell Distribution Width 12.7 % (11.8-14.3); White Blood Cell 6.9 10^3/uL (4.4-10.8)
[2025-01-27 06:37] LABS: Alanine Aminotransferase 11 U/L (7-40); Alkaline Phosphatase 58 U/L (46-116); Anion Gap 9 (5-15); Carbon Dioxide 24 mmol/L (20-31); Glucose 83 mg/dL (74-106); Lipase 39 U/L (12-53); Potassium 3.8 mmol/L (3.5-5.1); Sodium 141 mmol/L (136-145)
[2025-01-27 06:38] LABS: Albumin 3.6 g/dL (3.2-4.8); Aspartate Aminotransferase 11 U/L (13-40); Blood Urea Nitrogen 6 mg/dL (9-23); Calcium 8.4 mg/dL (8.7-10.4); Chloride 108 mmol/L (98-107); Total Protein 5.6 g/dL (5.7-8.2)
[2025-01-27 06:39] LABS: Bilirubin, Total 0.6 mg/dL (0.2-1.0)
[2025-01-27] MEDS: ACETAMINOPHEN 325 MG TAB PO PRN (08:35)
[2025-01-27 09:00] VITALS: BP 92/62; PULSE 81; RESP 16; TEMP 97.7; O2SAT 98
--- NOTE | 2025-01-27 11:58 | DVHINCON2 ---
Consultation - Surgical Date Seen: January 27, 2025 Referring Physician Referring Physician er Reason for Consultation abd pain History of Present Illness History of Present Illness 34-year-old female with past medical history of gastric sleeve, who came to the hospital for abdominal pain. Patient states she began having pain in her RUQ yesterday around 0900. At first she contributed the pain to her gastric sleeve, but when it continued and worsened she became concerned and came to the hospital. She states the pain worsens when she eats and radiates to her back. She last ate yesterday around 1800. She began having nausea and vomiting yesterday about 2100, states she has vomited about 3 times since last night. She states that since she had the gastric sleeve she has abdominal pain at times and belches frequently. CT demonstrated gallbladder distention. HIDA scan is pending Past Medical/Surgical History Past Medical/Surgical History Laparoscopic gastric sleeve, Family and Social History Family and Social History Nonsmoker nondrinker Allergies and medications Allergies: Coded Allergies: NO KNOWN ALLERGIES (Unverified , 03/26/15) Home Meds Discontinued Scripts Clindamycin Hcl (Clindamycin Hcl) 300 Mg Cap, 300 MG PO QID for 7 Days, #28 CAP Prov:ADELFO MEJIA PAC 07/16/23 Cefixime (Cefixime) 400 Mg Cap, 400 MG PO BID for 7 Days, #14 CAP Prov:ADELFO MEJIA PAC 07/16/23 Famotidine (PEPCID TABLET) 20 Mg Tb, 1 TAB PO BID PRN, #60 TAB 5 Refills Prov:YECENIA HARP 05/12/22 Methylprednisolone (Medrol Dosepak) 4 Mg Dinesh, 4 MG PO UD for 5 Days, #21 TAB UAD Prov:RYAN BOOKER MD 12/18/21 Review of systems Review of Systems: HEENT:Normal, CVS:Normal, RESPIRATORY:Normal, GI:Abnormal (Beta quadrant and epigastric pain), :Normal, NEURO:Normal Examination Vital signs Vital Signs Date Time Temp Pulse Resp B/P (MAP) Pulse Ox O2 Delivery O2 Flow Rate FiO2 01/27/25 09:00 97.7 81 16 92/62 (72) 98 97.7 01/26/25 20:00 Room Air* 0 21 Laboratory Labs Test 01/27/25 05:21 01/26/25 07:30 01/26/25 04:22 Range/Units White Blood Count 6.9 # 4.4-10.8 10^3/uL Red Blood Count 4.06 4.0-5.20 10^6/uL Hemoglobin 12.2 12.2-16.2 g/dL Hematocrit 35.0 #L 36.0-46.0 % Mean Corpuscular Volume 86.3 80.0-100.0 fL Mean Corpuscular Hemoglobin 30.2 28.0-32.0 pg Mean Corpuscular Hemoglobin Concent 35.0 32.0-36.0 g/dL Red Cell Distribution Width 12.7 11.8-14.3 % Platelet Count 209 140-450 10^3/uL Mean Platelet Volume 8.6 6.9-10.8 fL Neutrophils (%) (Auto) 51.4 37.0-80.0 % Lymphocytes (%) (Auto) 41.0 10.0-50.0 % Monocytes (%) (Auto) 4.9 0.0-12.0 % Eosinophils (%) (Auto) 2.3 0.0-7.0 % Basophils (%) (Auto) 0.4 0.0-2.0 % Neutrophils # (Auto) 3.6 1.6-8.6 10 ^3/uL Lymphocytes # (Auto) 2.8 0.4-5.4 10 ^3/uL Monocytes # (Auto) 0.3 0-1.3 10 ^3/uL Eosinophils # (Auto) 0.2 0-0.8 10 ^3/uL Basophils # (Auto) 0 0-0.2 10 ^3/uL Nucleated Red Blood Cells 0.0 % Sodium Level 141 136-145 mmol/L Potassium Level 3.8 3.5-5.1 mmol/L Chloride Level 108 H 98-107 mmol/L Carbon Dioxide Level 24 20-31 mmol/L Anion Gap 9 5-15 Blood Urea Nitrogen 6 L 9-23 mg/dL Creatinine 0.60 0.550-1.02 mg/dL Glomerular Filtration Rate Calc 122 >90 mL/min BUN/Creatinine Ratio 10.0 10.0-20.0 Serum Glucose 83 74-106 mg/dL Calcium Level 8.4 L 8.7-10.4 mg/dL Total Bilirubin 0.6 0.2-1.0 mg/dL Aspartate Amino Transferase (AST) 11 L 13-40 U/L Alanine Aminotransferase (ALT) 11 7-40 U/L Alkaline Phosphatase 58 46-116 U/L Total Protein 5.6 L 5.7-8.2 g/dL Albumin 3.6 3.2-4.8 g/dL Lipase 39 12-53 U/L Urine Color Light-yellow Yellow Urine Clarity Clear Clear Urine pH 7.0 5.0-9.0 Urine Specific [place] 1.018 1.001-1.035 Urine Protein Negative Negative Urine Ketones Negative Negative Urine Blood Negative Negative /uL Urine Nitrite Negative Negative Urine Bilirubin Negative Negative Urine Urobilinogen Normal Negative mg/dL Urine Leukocyte Esterase Negative Negative /uL Urine RBC 5 0 - 4 /hpf Urine Microscopic WBC 1 0-5 /HPF Urine Squamous Epithelial Cells Few <5 /hpf Urine Bacteria None seen None Seen /hpf Urine Mucus Few None Seen Urine Glucose Normal Normal mg/dL Prothrombin Time 10.0 9.3-11.8 sec Prothrombin Time INR 0.94 0.9-1.15 Activated Partial Thromboplast Time 24.9 24.5-34.5 SEC Beta HCG, Quantitative 0.6 L 1.5-4.2 mIU/mL Exam: CT CT AB PEL WO CON-NO ORAL OR IV History: RIGHT UPPER QUADRANT ABDOMINAL PAIN Comparison Study: None Technique: Multidetector spiral CT of the abdomen was performed from lung bases to pubic symphysis. Imaging was performed without IV contrast. Axial, coronal and sagittal multiplanar reformats were obtained from the axial data set by the technologist. Radiation Dose : CTDI volume is 14.09 mGy. Dose-length product is 778.58 mGy*cm Findings: Evaluation of solid organs is limited due to lack of intravenous contrast use. Lung Bases: No acute or significant lung base finding. Normal heart size. No pleural or pericardial effusion. Liver: Hepatic steatosis. Gallbladder and Biliary Tree: DISTENDED GALLBLADDER. Spleen: Unremarkable Pancreas: The pancreas is grossly normal in appearance. Adrenal Glands: Unremarkable Kidneys: Kidneys are grossly normal without calculi or hydronephrosis. Bladder: Grossly unremarkable for degree of distention. Bowel: The stomach is grossly normal in appearance. Small bowel and colon are normal in caliber and distribution. Normal appendix. Ascites: Absent Lymphadenopathy: No mesenteric, retroperitoneal or periportal lymphadenopathy. Abdominal Wall and Mesentery: Unremarkable. Vasculature: The visualized abdominal aorta is normal in size and caliber. Evaluation of abdominal and pelvic vessels is limited due to lack of intravenous contrast. Pelvic Organs: Unremarkable Musculoskeletal: No aggressive focal bony lesions, acute fractures or dislocat ion. IMPRESSION: Distended gallbladder. Right upper quadrant ultrasound recommended. Examination: GENERAL:Normal, HEENT:Normal, NECK:Normal, LUNGS:Normal, CVS:Normal, ABDOMEN:Normal, ABDOMEN:Abnormal (Mild epigastric tenderness), MSK:Normal, SKIN:Normal, NEURO:Normal, :Normal Problem List/Assessment/Plan Problems: (1) Epigastric abdominal pain Assessment and Plan Patient with four day history of abdominal vomiting pain. Cat scan demonstrated distended gallbladder. HIDA scan currently is pending. NPO IV fluids, GI workup Plan discussed with Plan discussed with: Patient Visit Coding Surgery Date of Service if different f: January 27, 2025 Billing Provider: JUSTIN GOODRICH Jr., MD Surgery Visit Codes: 91559 - INP CONSULT <80 MIN JUSTIN GOODRICH Jr., MD January 27, 2025 11:58
[2025-01-27 13:00] VITALS: BP 113/69; PULSE 67; RESP 16; TEMP 97.3; O2SAT 96
--- NOTE | 2025-01-27 14:09 | DVHPN2 ---
Subjective Denies any pain Reviewed: Care Plan, H&P, Labs, Medications, Previous Orders Changes from previous H/P or p: No Changes General: Per HPI Eyes: No Pain, No Vision change, No Conjunctivae inflammation, No Eyelid inflammation, No Other, No Redness ENT: No Ear pain, No Ear discharge, No Nose pain, No Nose discharge, No Nose congestion, No Mouth pain, No Mouth swelling, No Throat pain, No Throat swelling, No Other Cardiovascular: No Chest Pain, No Palpitations, No Orthopnea, No Paroxysmal Noc. Dyspnea, No Edema, No Lt Headedness, No Other Respiratory: No Cough, No Dry, No Shortness of breath, No SOB with excertion, No Wheezing, No Hemoptysis, No Pleuritic Pain, No Sputum, No Other Gastrointestinal: Nausea, Vomiting, Abdominal Pain; No Diarrhea, No Constipation, No Melena, No Hematochezia, No Other Genitourinary: No Dysuria, No Frequency, No Incontinence, No Hematuria, No Retention, No Other Musculoskeletal: No other, No neck pain, No shoulder pain, No arm pain, No back pain, No hand pain, No leg pain, No foot pain Skin: No Rash, No Lesions, No Jaundice, No Bruising, No Other Objective Vitals Vital Signs Date Time Temp Pulse Resp B/P (MAP) Pulse Ox O2 Delivery O2 Flow Rate FiO2 01/27/25 13:00 97.3 67 16 113/69 (84) 96 97.3 01/26/25 20:00 Room Air* 0 21 Intake/Output Intake and Output 01/27/25 07:00 Intake Total 1540 ml Balance 1540 ml Intake Oral 420 ml IV Total 1120 ml # Voids 5 General Appearance: Alert, Oriented X3, Cooperative, No acute distress HEENT: Atraumatic, PERRLA Cardiovascular: Normal S1, Normal S2 Abdomen: Normal bowel sounds, Soft, No tenderness, No hepatospenomegaly Genitourinary: No Apparent Abnormalities Neuro: Normal gait, Normal speech Psych/Mental Status: Mental status NL, Mood NL Medications Current Medications Medications Dose Ordered Sig/Myla Route Start Time Stop Time Status Last Admin Dose Admin Acetaminophen/ Hydrocodone Bitart 1 tab Q4HP PRN PO 01/26/25 08:00 Ondansetron HCl 4 mg Q4HP PRN IV 01/26/25 08:00 01/26/25 23:20 4 MG Docusate Sodium 100 mg BIDPRN PRN PO 01/26/25 08:00 Acetaminophen 650 mg Q6HP PRN PO 01/26/25 08:00 01/27/25 08:35 650 MG Morphine Sulfate 2 mg Q4HPRN PRN IV 01/26/25 08:00 01/26/25 08:54 2 MG Sodium Chloride 1,000 ml @ 125 mls/hr Q8H IV 01/26/25 08:15 01/26/25 23:20 125 MLS/HR Laboratory Results Laboratory Tests 01/27/25 05:21 Chemistry Test 01/27/25 05:21 Albumin 3.6 g/dL (3.2-4.8) Calcium Level 8.4 mg/dL (8.7-10.4) L Total Protein 5.6 g/dL (5.7-8.2) L Lipid panel Test 01/27/25 05:21 Lipase 39 U/L (12-53) LFT Test 01/27/25 05:21 Alanine Aminotransferase (ALT) 11 U/L (7-40) Alkaline Phosphatase 58 U/L (46-116) Aspartate Amino Transferase (AST) 11 U/L (13-40) L Total Bilirubin 0.6 mg/dL (0.2-1.0) Urinalysis Test 01/26/25 07:30 Urine Color Light-yellow (Yellow) Urine Clarity Clear (Clear) Urine pH 7.0 (5.0-9.0) Urine Specific [place] 1.018 (1.001-1.035) Urine Protein Negative (Negative) Urine Ketones Negative (Negative) Urine Blood Negative /uL (Negative) Urine Nitrite Negative (Negative) Urine Bilirubin Negative (Negative) Urine Urobilinogen Normal mg/dL (Negative) Urine Leukocyte Esterase Negative /uL (Negative) Urine RBC 5 /hpf (0 - 4) Urine Microscopic WBC 1 /HPF (0-5) Urine Squamous Epithelial Cells Few /hpf (<5) Urine Bacteria None seen /hpf (None Seen) Urine Mucus Few (None Seen) Urine Glucose Normal mg/dL (Normal) Labs and/or images reviewed: Labs reviewed by me, Image(s) reviewed by me Assessment/Plan Assessment/Plan Impression: -rule out cholecystitis -cholelithiasis -obesity -hx of gastric sleeve Plan: -Surgical consult -HIDA scan pending -Obesity -pain management -Further course of treatment per surgeon recommendation. Total time spent with patient discussing and formulating plan of care: 35 minutes. This medical document was created using an electronic medical record system with [employer] dictation system. Although this document has been carefully reviewed, there may still be some phonetic and typographical errors. These areas are purely typographical due to imperfections of the software programs, and do not reflect any compromise in the patient's medical care. Plan discussed with: Patient, Other (RN) Date of Service: January 27, 2025 Billing Provider: DEXTER MUSA NP Common Visit Codes: [id number] INP/OBS CARE(HIGH) DEXTER MUSA NP January 27, 2025 14:09
--- NOTE | 2025-01-27 15:34 | DVH ---
Procedure: NM NM HIDA SCAN Exam Date: 01/27/2025 01:23 PM Clinical History: pain; evaluate for cholecystitis and biliary dyskensia Comparison Study: 01/26/25 Nuclear Medicine Hepatobiliary Scan. Technique: Following the intravenous administration of 6.5 mCi of technetium 99m labeled Choletec multiple plana r abdominal planar images were obtained in anterior projection in 5 minute intervals for45 minutes . Right lateral images were obtained at 45 minutes after injection. Findings: The liver appears grossly normal in size. There is no abnormal persistence of the cardiac or blood po ol activity. There is prompt visualization of the gallbladder and excretion of activity into the smal l bowel. Impression: Unremarkable hepatobiliary study without evidence of acute cholecystitis.
[2025-01-27 17:49] VITALS: BP 97/49; PULSE 68; RESP 17; TEMP 98.4; O2SAT 99
[2025-01-27 21:00] VITALS: BP 104/52; PULSE 71; RESP 15; TEMP 98; O2SAT 95
--- NOTE | 2025-01-27 21:17 | DVHPN2 ---
Progress Note - Dictate Date Seen: January 27, 2025 Medical Necessity Reason Pt with a Central, PICC or Fol: No Subjective Patient seen at bedside, resting comfortably She is sitting up in bed working on her computer Abdominal pain is improved Patient is hungry and would like to eat HIDA scan was negative vital signs Vital Sign Date Time Temp Pulse Resp B/P (MAP) Pulse Ox O2 Delivery O2 Flow Rate FiO2 01/27/25 21:00 98.0 71 15 104/52 (69) 95 98.0 01/26/25 20:00 Room Air* 0 21 Total Intake and Output 01/26/25 01/26/25 01/27/25 15:00 23:00 07:00 Intake Total 1000 ml 120 ml 420 ml Balance 1000 ml 120 ml 420 ml medications Current Medications Medications Dose Ordered Sig/Myla Route Start Time Stop Time Status Last Admin Dose Admin Acetaminophen/ Hydrocodone Bitart 1 tab Q4HP PRN PO 01/26/25 08:00 Ondansetron HCl 4 mg Q4HP PRN IV 01/26/25 08:00 01/27/25 20:57 4 MG Docusate Sodium 100 mg BIDPRN PRN PO 01/26/25 08:00 Acetaminophen 650 mg Q6HP PRN PO 01/26/25 08:00 01/27/25 08:35 650 MG Morphine Sulfate 2 mg Q4HPRN PRN IV 01/26/25 08:00 01/26/25 08:54 2 MG Sodium Chloride 1,000 ml @ 125 mls/hr Q8H IV 01/26/25 08:15 01/27/25 16:15 125 MLS/HR objective General Appearance: Alert, Oriented X3, Cooperative, no distress HEENT: Atraumatic, PERRLA Respiratory: Clear to auscultation, Normal air movement Cardiovascular: Regular rate, Normal S1, Normal S2 Abdominal: Normal bowel sounds, Soft, mild RUQ and epigastric tenderness Extremities: No clubbing, No cyanosis, No edema, Normal pulses, No tenderness/swelling Skin: No rashes, No breakdown, No significant lesion Neuro: Normal gait, Normal speech, Strength at 5/5 X4 ext Psych/Mental Status: Mental status NL, Mood NL laboratory and microbiology Laboratory Tests 01/27/25 05:21 Test 01/27/25 05:21 Range/Units Serum Glucose 83 74-106 mg/dL RUQ USG IMPRESSION: 1. Multiple gallstones and gallbladder wall thickening. Acute cholecystitis is not excluded. HIDA SCAN Impression: Unremarkable hepatobiliary study without evidence of acute cholecystitis. Problems(with codes): (1) GERD (gastroesophageal reflux disease) (2) S/P gastric sleeve procedure (3) Epigastric abdominal pain (4) Cholelithiases (5) Gallbladder disease (6) Acute abdominal pain Prognosis Plan I allow the patient to have a full liquid diet tonight I will keep her NPO after midnight If there was no surgical intervention planned for tomorrow by surgical consult then I will consider doing an endoscopy evaluation tomorrow I will follow up patient with you Plan discussed with: Patient, Other (Nurse) PIETRO CHOW MD January 27, 2025 21:17
[2025-01-28] VITALS (8 sets, daily range): BP systolic 100–153; BP diastolic 49–82; PULSE 59–98; RESP 15–20; TEMP 98–98.7; O2SAT 94–99
[2025-01-28] MEDS: HYDROcodone-ACET 5/325MG TAB PO PRN (00:31)
[2025-01-28] MEDS ORDERED: SODIUM CHLORIDE LOCK 0 ML ONE (11:32)
[2025-01-28] MEDS ORDERED: MIDAZOLAM HCL 5 MG/ML-1ML VIAL ONE (11:33)
[2025-01-28] MEDS ORDERED: diphenhdrAMINE HCL 50 MG/1 ML VL ONE (11:33)
[2025-01-28] MEDS ORDERED: fentaNYL CITRATE 100 MCG/2 ML VL ONE (11:33)
[2025-01-28] MEDS ORDERED: LIDOCAINE VISCOUS 2% 15ML UD ONE (11:33)
[2025-01-28] MEDS ORDERED: PROPOFOL 10 MG/ML 20 ML IV ONE (12:51)
[2025-01-28] MEDS ORDERED: METOCLOPRAMIDE HCL 5MG/ml INJ 2ml VIAL ONE (12:51)
[2025-01-28] MEDS ORDERED: ONDANSETRON HCL 4 MG/2 ML VIAL ONE (12:51)
--- NOTE | 2025-01-28 13:05 | DVHOP2 ---
Operative Report DATE OF OPERATION: 01/28/25 PROCEDURE: Upper Endoscopy with biopsy. PREOPERATIVE INDICATION: The patient is a 34 -year-old female undergoing endoscopy for epigastric and right upper quadrant pain POSTOPERATIVE DIAGNOSES: 1. Patient has intact gastric sleeve extending from the proximal through the mid stomach with some inflammatory granulation tissue at the proximal edge of the gastric sleeve from which biopsies were obtained 2. Small gastric remnant about the proximal edge of the gastric sleeve; slightly irregular squamocolumnar junction but no significant erosive esophagitis 3.Mild gastroduodenitis otherwise normal examination up to the 2nd and 3rd part of the duodenum with good bile drainage, no ulceration and no active bleeding; duodenal and gastric biopsies were obtained PROCEDURE PERFORMED BY: Pietro Jarrett GI NURSE: Curtis SCOPE: Olympus videoendoscope. ASA CLASS: 2 PREOPERATIVE MEDICATIONS: Mac sedation, Ralph PROCEDURE IN DETAIL: After obtaining an informed consent, the patient was placed on left lateral decubitus position. The patient was then sedated with the above medications. A bite block was placed between her teeth. The endoscope was then passed through the oropharynx, into the esophagus, and through the stomach and pylorus up to the second and third part of the duodenum. The endoscope was then withdrawn. The 2nd and 3rd part of the duodenum were normal with good bile drainage and no bleeding. Duodenal bulb showed minimal duodenitis The pre-pyloric area antrum and body showed [id number] gastritis. Gastric biopsies were obtained. I could not retroflex because of her gastric sleeve Patient had an intact gastric sleeve extending from the proximal stomach to the mid to distal body of the stomach with narrowing of the stomach Of the proximal age there appeared to be some reactive granulation tissue from which biopsies were obtained. There was no ulceration or bleeding The proximal remnant of the stomach above the gastric sleeve was small. Patient had a slightly irregular squamocolumnar junction but no significant esophagitis The remaining distal and proximal esophagus and oropharynx were unremarkable The patient tolerated the procedure well without difficulty. COMPLICATIONS : None SPECIMENS: Duodenal biopsies Gastric biopsies DISPOSITION: Transfer back to the floor Stable PLAN: 1. Await for biopsy result 2. Will place pt on Protonix 40 mg bid 3. Carafate 1 g p.o. 4 times a day 4. Clear liquid diet advanced to full liquid 5. NPO after midnight as the patient is tentatively scheduled for a cholecystectomy in a. PIETRO JARRETT MD January 28, 2025 13:05
[2025-01-28] MEDS: ONDANSETRON HCL 4 MG/2 ML VIAL IV ONE (13:15)
[2025-01-28] MEDS ORDERED: HYDROmorphone HCL 2 MG/ML VL/or syr IV PRN (13:15)
[2025-01-28] MEDS: METOCLOPRAMIDE HCL 5MG/ml INJ 2ml VIAL IV ONE (13:15)
--- NOTE | 2025-01-28 14:21 | DVHPN2 ---
Progress Note Date Seen: January 28, 2025 Medical Necessity Reason Pt with a Central, PICC or Fol: No Objective vital signs Vital Sign Date Time Temp Pulse Resp B/P (MAP) Pulse Ox O2 Delivery O2 Flow Rate FiO2 01/28/25 13:30 98 18 105/64 (78) 01/28/25 13:07 Room Air 97 01/28/25 12:59 97 7.0 01/28/25 12:59 98.0 98.0 Total Intake and Output 01/27/25 01/27/25 01/28/25 15:00 23:00 07:00 Intake Total 80 ml 400 ml Balance 80 ml 400 ml medications Current Medications Medications Dose Ordered Sig/Myla Route Start Time Stop Time Status Last Admin Dose Admin Acetaminophen/ Hydrocodone Bitart 1 tab Q4HP PRN PO 01/26/25 08:00 01/28/25 10:50 1 TAB Ondansetron HCl 4 mg Q4HP PRN IV 01/26/25 08:00 01/28/25 08:39 4 MG Docusate Sodium 100 mg BIDPRN PRN PO 01/26/25 08:00 Acetaminophen 650 mg Q6HP PRN PO 01/26/25 08:00 01/28/25 08:30 650 MG Morphine Sulfate 2 mg Q4HPRN PRN IV 01/26/25 08:00 01/26/25 08:54 2 MG Sodium Chloride 1,000 ml @ 125 mls/hr Q8H IV 01/26/25 08:15 01/28/25 08:43 125 MLS/HR Sucralfate 1 gm QID@0600,1130,1700,2200 PO 01/28/25 17:00 laboratory and microbiology Laboratory Tests 01/27/25 05:21 Test 01/27/25 05:21 Range/Units Serum Glucose 83 74-106 mg/dL Problem List/Assessment/Plan Problem List/Assessment/Plan 01/28/25 patient with severe right upper quadrant abdominal pain and documented gallstones, HIDA scan negative, normal LFT's, laparoscopic possibly open cholecystectomy risks and complications explained in detail Plan discussed with: Patient SARAH WATKINS MD January 28, 2025 14:21
--- NOTE | 2025-01-28 14:27 | DVHPN2 ---
Subjective Denies any pain Reviewed: Care Plan, H&P, Labs, Medications, Previous Orders Changes from previous H/P or p: No Changes General: Per HPI Eyes: No Pain, No Vision change, No Conjunctivae inflammation, No Eyelid inflammation, No Other, No Redness ENT: No Ear pain, No Ear discharge, No Nose pain, No Nose discharge, No Nose congestion, No Mouth pain, No Mouth swelling, No Throat pain, No Throat swelling, No Other Cardiovascular: No Chest Pain, No Palpitations, No Orthopnea, No Paroxysmal Noc. Dyspnea, No Edema, No Lt Headedness, No Other Respiratory: No Cough, No Dry, No Shortness of breath, No SOB with excertion, No Wheezing, No Hemoptysis, No Pleuritic Pain, No Sputum, No Other Gastrointestinal: Nausea, Vomiting, Abdominal Pain; No Diarrhea, No Constipation, No Melena, No Hematochezia, No Other Genitourinary: No Dysuria, No Frequency, No Incontinence, No Hematuria, No Retention, No Other Musculoskeletal: No other, No neck pain, No shoulder pain, No arm pain, No back pain, No hand pain, No leg pain, No foot pain Skin: No Rash, No Lesions, No Jaundice, No Bruising, No Other Objective Vitals Vital Signs Date Time Temp Pulse Resp B/P (MAP) Pulse Ox O2 Delivery O2 Flow Rate FiO2 01/28/25 13:30 98 18 105/64 (78) 01/28/25 13:07 Room Air 97 01/28/25 12:59 97 7.0 01/28/25 12:59 98.0 98.0 Intake/Output Intake and Output 01/28/25 07:00 Intake Total 480 ml Balance 480 ml Intake Oral 480 ml # Voids 13 General Appearance: Alert, Oriented X3, Cooperative, No acute distress HEENT: Atraumatic, PERRLA Cardiovascular: Normal S1, Normal S2 Abdomen: Normal bowel sounds, Soft, No tenderness, No hepatospenomegaly Genitourinary: No Apparent Abnormalities Neuro: Normal gait, Normal speech Skin: Dry, Intact Psych/Mental Status: Mental status NL, Mood NL Medications Current Medications Medications Dose Ordered Sig/Myla Route Start Time Stop Time Status Last Admin Dose Admin Acetaminophen/ Hydrocodone Bitart 1 tab Q4HP PRN PO 01/26/25 08:00 01/28/25 10:50 1 TAB Ondansetron HCl 4 mg Q4HP PRN IV 01/26/25 08:00 01/28/25 08:39 4 MG Docusate Sodium 100 mg BIDPRN PRN PO 01/26/25 08:00 Acetaminophen 650 mg Q6HP PRN PO 01/26/25 08:00 01/28/25 08:30 650 MG Morphine Sulfate 2 mg Q4HPRN PRN IV 01/26/25 08:00 01/26/25 08:54 2 MG Sodium Chloride 1,000 ml @ 125 mls/hr Q8H IV 01/26/25 08:15 01/28/25 08:43 125 MLS/HR Sucralfate 1 gm QID@0600,1130,1700,2200 PO 01/28/25 17:00 Laboratory Results Laboratory Tests 01/27/25 05:21 Urinalysis Test 01/26/25 07:30 Urine Color Light-yellow (Yellow) Urine Clarity Clear (Clear) Urine pH 7.0 (5.0-9.0) Urine Specific [place] 1.018 (1.001-1.035) Urine Protein Negative (Negative) Urine Ketones Negative (Negative) Urine Blood Negative /uL (Negative) Urine Nitrite Negative (Negative) Urine Bilirubin Negative (Negative) Urine Urobilinogen Normal mg/dL (Negative) Urine Leukocyte Esterase Negative /uL (Negative) Urine RBC 5 /hpf (0 - 4) Urine Microscopic WBC 1 /HPF (0-5) Urine Squamous Epithelial Cells Few /hpf (<5) Urine Bacteria None seen /hpf (None Seen) Urine Mucus Few (None Seen) Urine Glucose Normal mg/dL (Normal) Labs and/or images reviewed: Labs reviewed by me, Image(s) reviewed by me Assessment/Plan Assessment/Plan Impression: -rule out cholecystitis -cholelithiasis -obesity -hx of gastric sleeve Plan: -events: Patient had EGD today. Recommendations reviewed by GI. -Surgical consult: Plans for lap luna in a.m. -HIDA scan reviewed. Patient continues to have epigastric pain. -Obesity -pain management -Further course of treatment per surgeon recommendation. Total time spent with patient discussing and formulating plan of care: 35 minutes. This medical document was created using an electronic medical record system with [employer] system. Although this document has been carefully reviewed, there may still be some phonetic and typographical errors. These areas are purely typographical due to imperfections of the software programs, and do not reflect any compromise in the patient's medical care. Plan discussed with: Patient, Other (RN) Date of Service: January 28, 2025 Billing Provider: DEXTER MUSA NP Common Visit Codes: [id number] INP/OBS CARE(HIGH) DEXTER MUSA NP January 28, 2025 14:27
[2025-01-28] MEDS: SUCRALFATE 1 GM/10 ML ORAL SUSP PO SCH (17:08)
[2025-01-29] VITALS (8 sets, daily range): BP systolic 100–125; BP diastolic 58–77; PULSE 59–90; RESP 16–19; TEMP 98.2–99.1; O2SAT 93–97
[2025-01-29] MEDS: SUCCINYLCHOLINE CHLORIDE 20 MG/ML 10ML VIAL IV ONE (06:59)
[2025-01-29] MEDS ORDERED: fentaNYL CITRATE 100 MCG/2 ML VL ONE (07:03)
[2025-01-29] MEDS ORDERED: HYDROmorphone HCL 2 MG/ML VL/or syr ONE (07:03)
[2025-01-29] MEDS ORDERED: PROPOFOL 10 MG/ML 20 ML IV ONE (07:05)
[2025-01-29] MEDS: ceFAZolin 2 GM/D5W50ml 50 ML IV ONE (07:22)
[2025-01-29] MEDS ORDERED: ONDANSETRON HCL 4 MG/2 ML VIAL ONE (07:25)
[2025-01-29] MEDS ORDERED: DexAMETHasone SOD PHOS 10MG/1ML VIAL INJ ONE (07:25)
[2025-01-29] MEDS ORDERED: ROCURONIUM 10MG/ML 10ML VIAL IV ONE (07:30)
[2025-01-29] MEDS ORDERED: PHENYLEPHRINE HCL 10 MG/ML VL ONE (07:32)
[2025-01-29] MEDS ORDERED: ePHEDrine SULFATE 50 MG/ML AMP ONE (07:34)
[2025-01-29] MEDS: BUPIVACAINE 0.5% P/F INJ 10 ML VIAL ONE (07:48)
[2025-01-29] MEDS: LIDOCAINE W/ EPINEPHRINE 1% 20ML VIAL ONE (07:48)
[2025-01-29] MEDS ORDERED: SUGAMMADEX 200mg/2ml Vial (100MG/ML) IV ONE (08:12)
[2025-01-29] MEDS ORDERED: MEPERIDINE HCL (25 MG/ML) 1ML VIAL IV PRN (08:30)
[2025-01-29] MEDS: ONDANSETRON HCL 4 MG/2 ML VIAL IV ONE (08:30)
--- NOTE | 2025-01-29 08:34 | DVHOP ---
DATE OF SURGERY: 01/29/2025 PREOPERATIVE DIAGNOSES: Cholelithiasis, cholecystitis. POSTOPERATIVE DIAGNOSES: Cholelithiasis, cholecystitis. SURGEON: Melecio Dennison MD GOODYEAR WELTER: Abdirizak Chen NP ANESTHESIA: General endotracheal, Dr. Meadows. PROCEDURES: Laparoscopy, laparoscopic cholecystectomy. DESCRIPTION OF PROCEDURE: Under general endotracheal anesthesia with the patient's skin prepped and draped, a supraumbilical incision was made and Veress needle inserted into the peritoneal cavity by the hanging drop technique in order to establish pneumoperitoneum to 15 mmHg pressure by insufflation with carbon dioxide. With the abdomen fully distended, the needle was removed and replaced with a 5 mm trocar port through which a 0-degree viewing laparoscope was inserted and then under direct vision, two additional ports inserted, one in the anterior axillary line at the level of the umbilicus measuring 5 mm in diameter and the other a 10 mm port in the subxiphoid skin in the midline. Laparoscopy revealed no obvious unexpected pathology, but was hampered by the patient's obesity. The gallbladder was infected and inflamed, so it was placed on tension. The cystic duct and cystic artery were identified through dissection of edematous tissues around the portal area. The cystic duct was exceedingly short. It was circumferentially skeletonized and then divided between metallic clips with careful attention not to injure the common bile duct. Similarly, the cystic artery was divided between metallic clips after being skeletonized and traced into the hepatocystic triangle. Following division of the cystic duct and cystic artery with careful protection of the common bile duct, the gallbladder was resected from its liver bed by electrocautery and traction. The fully mobilized gallbladder was placed into a specimen extraction bag that was inserted by the 10 mm port site. The gallbladder was retrieved from the peritoneal cavity. The right upper quadrant was irrigated. Irrigant was aspirated. Hemostasis was meticulously accomplished and found to be complete at the site of the cholecystectomy as well as the port sites. A 10 mm Morris-Chadwick drain was inserted underneath the right lobe of the liver due to the infected gallbladder and the edema present. The drain was exteriorized through the 5 mm port site in the right flank and secured with a 2-0 nylon suture. Instrumentation was withdrawn. Pneumoperitoneum was evacuated. Fascia defect closed using 0 Vicryl. The wound was approximated using Monocryl sutures, Dermabond glue, and Steri-Strips. The patient remained stable throughout the procedure and left the operating room following an accurate needle and sponge counts. Her , Tony Pan, was thoroughly informed at [phone]. Melecio Dennison MD PF/PROMISE TID: [id number] RECEIPT: [id number]
[2025-01-29] MEDS: HYDROmorphone HCL 2 MG/ML VL/or syr ONE (08:41)
[2025-01-29] MEDS: ACETAMINOPHEN IV 100 ML IV ONE (08:41)
[2025-01-29] MEDS: HYDROmorphone HCL 2 MG/ML VL/or syr IV PRN (08:42)
[2025-01-29] MEDS: ACETAMINOPHEN IV 1000 MG/100ML (10MG/ML) IV PRN (08:49)
[2025-01-29] MEDS: PANTOPRAZOLE 40 MG/10 ML VIAL INJ IV SCH (10:20)
[2025-01-29] MEDS: D5W/SOD CHL 0.45%/KCL 20MEQ 1,000 ML IV SCH (10:20)
[2025-01-29] MEDS: MORPHINE SULFATE 4 MG/ML SYR/VIAL IV PRN (12:33)
[2025-01-29] MEDS: ceFAZolin 2 GM/D5W50ml 50 ML IV SCH (13:00)
--- NOTE | 2025-01-29 13:47 | DVHPN2 ---
Subjective Denies any pain Reviewed: Care Plan, H&P, Labs, Medications, Previous Orders Changes from previous H/P or p: No Changes General: Per HPI Eyes: No Pain, No Vision change, No Conjunctivae inflammation, No Eyelid inflammation, No Other, No Redness ENT: No Ear pain, No Ear discharge, No Nose pain, No Nose discharge, No Nose congestion, No Mouth pain, No Mouth swelling, No Throat pain, No Throat swelling, No Other Cardiovascular: No Chest Pain, No Palpitations, No Orthopnea, No Paroxysmal Noc. Dyspnea, No Edema, No Lt Headedness, No Other Respiratory: No Cough, No Dry, No Shortness of breath, No SOB with excertion, No Wheezing, No Hemoptysis, No Pleuritic Pain, No Sputum, No Other Gastrointestinal: Nausea, Vomiting, Abdominal Pain; No Diarrhea, No Constipation, No Melena, No Hematochezia, No Other Genitourinary: No Dysuria, No Frequency, No Incontinence, No Hematuria, No Retention, No Other Musculoskeletal: No other, No neck pain, No shoulder pain, No arm pain, No back pain, No hand pain, No leg pain, No foot pain Skin: No Rash, No Lesions, No Jaundice, No Bruising, No Other Objective Vitals Vital Signs Date Time Temp Pulse Resp B/P (MAP) Pulse Ox O2 Delivery O2 Flow Rate FiO2 01/29/25 12:33 85 18 119/69 01/29/25 10:00 97 Room Air* 0 21 01/29/25 08:23 97.4 97.4 Intake/Output Intake and Output 01/29/25 07:00 Intake Total 1500 ml Balance 1500 ml Intake Oral 300 ml IV Total 1200 ml # Voids 4 # Bowel Movements 3 General Appearance: Alert, Oriented X3, Cooperative, No acute distress HEENT: Atraumatic, PERRLA Cardiovascular: Normal S1, Normal S2 Abdomen: Normal bowel sounds, Soft, Other (SYEDA drain) Genitourinary: No Apparent Abnormalities Neuro: Normal gait, Normal speech Skin: Dry, Intact Psych/Mental Status: Mental status NL, Mood NL Medications Current Medications Medications Dose Ordered Sig/Myla Route Start Time Stop Time Status Last Admin Dose Admin Acetaminophen/ Hydrocodone Bitart 1 tab Q4HP PRN PO 01/26/25 08:00 01/28/25 10:50 1 TAB Ondansetron HCl 4 mg Q4HP PRN IV 01/26/25 08:00 01/29/25 00:06 4 MG Docusate Sodium 100 mg BIDPRN PRN PO 01/26/25 08:00 Acetaminophen 650 mg Q6HP PRN PO 01/26/25 08:00 01/28/25 23:59 650 MG Sodium Chloride 1,000 ml @ 125 mls/hr Q8H IV 01/26/25 08:15 01/29/25 00:03 125 MLS/HR Sucralfate 1 gm QID@0600,1130,1700,2200 PO 01/28/25 17:00 01/29/25 10:20 1 GM Potassium Chloride/Dextrose/ Sod Cl 1,000 ml @ 120 mls/hr Q8H20M IV 01/29/25 08:15 01/29/25 10:20 120 MLS/HR Pantoprazole Sodium 40 mg DAILY IV 01/29/25 10:00 01/29/25 10:20 40 MG Cefazolin Sodium/ Dextrose 50 ml @ 50 mls/hr Q8HR IV 01/29/25 14:00 01/29/25 13:00 50 MLS/HR Metronidazole 100 ml @ 100 mls/hr Q8HR IV 01/29/25 14:00 Morphine Sulfate 2 mg Q4HPRN PRN IV 01/29/25 08:45 01/29/25 12:33 2 MG Laboratory Results Laboratory Tests 01/27/25 05:21 Urinalysis Test 01/26/25 07:30 Urine Color Light-yellow (Yellow) Urine Clarity Clear (Clear) Urine pH 7.0 (5.0-9.0) Urine Specific [place] 1.018 (1.001-1.035) Urine Protein Negative (Negative) Urine Ketones Negative (Negative) Urine Blood Negative /uL (Negative) Urine Nitrite Negative (Negative) Urine Bilirubin Negative (Negative) Urine Urobilinogen Normal mg/dL (Negative) Urine Leukocyte Esterase Negative /uL (Negative) Urine RBC 5 /hpf (0 - 4) Urine Microscopic WBC 1 /HPF (0-5) Urine Squamous Epithelial Cells Few /hpf (<5) Urine Bacteria None seen /hpf (None Seen) Urine Mucus Few (None Seen) Urine Glucose Normal mg/dL (Normal) Labs and/or images reviewed: Labs reviewed by me, Image(s) reviewed by me Assessment/Plan Assessment/Plan Impression: -rule out cholecystitis -cholelithiasis -obesity -hx of gastric sleeve Plan: -events: Status post cholecystectomy, laparoscopic approach. SYEDA drain with minimal serosanguineous fluid. Patient ambulating. Patient has positive bowel sounds. Surgical findings discussed with the patient. All questions answered. -Surgical consult: Recommendations reviewed -pain management -IV hydration -advance diet as tolerated -postop antibiotic -repeat labs in a.m. Total time spent with patient discussing and formulating plan of care: 35 minutes. This medical document was created using an electronic medical record system with [email or web address] dictation system. Although this document has been carefully reviewed, there may still be some phonetic and typographical errors. These areas are purely typographical due to imperfections of the software programs, and do not reflect any compromise in the patient's medical care. Plan discussed with: Patient, Other (RN) Date of Service: January 29, 2025 Billing Provider: DEXTER MUSA NP Common Visit Codes: [id number] INP/OBS CARE(HIGH) DEXTER MUSA NP January 29, 2025 13:47
[2025-01-29] MEDS: metroNIDAZOLE 500MG/100ML 100 ML IV SCH (14:26)
--- NOTE | 2025-01-29 19:39 | DVHPN2 ---
Progress Note - Dictate Date Seen: January 29, 2025 Medical Necessity Reason Pt with a Central, PICC or Fol: No Subjective Patient is S/P laparoscopic cholecystectomy today Patient was seen ambulating in the hallway with her IV pole she is tolerating a clear liquid diet and is feeling better vital signs Vital Sign Date Time Temp Pulse Resp B/P (MAP) Pulse Ox O2 Delivery O2 Flow Rate FiO2 01/29/25 17:31 75 16 118/70 01/29/25 16:55 98.5 95 98.5 01/29/25 10:00 Room Air* 0 21 Total Intake and Output 01/28/25 01/28/25 01/29/25 15:00 23:00 07:00 Intake Total 1100 ml 300 ml 100 ml Balance 1100 ml 300 ml 100 ml medications Current Medications Medications Dose Ordered Sig/Myla Route Start Time Stop Time Status Last Admin Dose Admin Acetaminophen/ Hydrocodone Bitart 1 tab Q4HP PRN PO 01/26/25 08:00 01/29/25 14:17 1 TAB Ondansetron HCl 4 mg Q4HP PRN IV 01/26/25 08:00 01/29/25 00:06 4 MG Docusate Sodium 100 mg BIDPRN PRN PO 01/26/25 08:00 Acetaminophen 650 mg Q6HP PRN PO 01/26/25 08:00 01/28/25 23:59 650 MG Sucralfate 1 gm QID@0600,1130,1700,2200 PO 01/28/25 17:00 01/29/25 17:27 1 GM Potassium Chloride/Dextrose/ Sod Cl 1,000 ml @ 120 mls/hr Q8H20M IV 01/29/25 08:15 01/29/25 18:24 120 MLS/HR Pantoprazole Sodium 40 mg DAILY IV 01/29/25 10:00 01/29/25 10:20 40 MG Cefazolin Sodium/ Dextrose 50 ml @ 50 mls/hr Q8HR IV 01/29/25 14:00 01/29/25 13:00 50 MLS/HR Metronidazole 100 ml @ 100 mls/hr Q8HR IV 01/29/25 14:00 01/29/25 14:26 100 MLS/HR Morphine Sulfate 2 mg Q4HPRN PRN IV 01/29/25 08:45 01/29/25 17:01 2 MG objective General Appearance: Alert, Oriented X3, Cooperative, no distress HEENT: Atraumatic, PERRLA Respiratory: Clear to auscultation, Normal air movement Cardiovascular: Regular rate, Normal S1, Normal S2 Abdominal: Normal bowel sounds, Soft, mild RUQ and epigastric tenderness Extremities: No clubbing, No cyanosis, No edema, Normal pulses, No tenderness/swelling Skin: No rashes, No breakdown, No significant lesion Neuro: Normal gait, Normal speech, Strength at 5/5 X4 ext Psych/Mental Status: Mental status NL, Mood NL laboratory and microbiology Laboratory Tests 01/27/25 05:21 Test 01/27/25 05:21 Range/Units Serum Glucose 83 74-106 mg/dL Problems(with codes): (1) S/P gastric sleeve procedure (2) GERD (gastroesophageal reflux disease) (3) Epigastric abdominal pain (4) Cholelithiases (5) Gallbladder disease (6) Acute abdominal pain (7) S/P laparoscopic cholecystectomy Prognosis Plan Continue supportive care Advance diet as tolerated Pain control Monitor labs discharge planning as per hospitalist and surgical consult Maintained on Protonix 40 mg p.o. daily Carafate 1 g p.o. q.h.s. Outpatient follow up with me in 4-6 weeks or as needed Dietary Evaluation Review Comments: Avoid fried and fatty food. follow a 2gNa low sugar low fat diet after D/C Expected Outcomes/Goals: gradual wt loss Plan discussed with: Patient PIETRO CHOW MD January 29, 2025 19:39
[2025-01-29] MEDS: KETOROLAC TROMETH 30 MG/ML 1ML VIAL ONE (23:08)
[2025-01-29] MEDS: KETOROLAC TROMETH 30 MG/ML 1ML VIAL IV ONE (23:09)
[2025-01-30 01:00] VITALS: BP 97/55; PULSE 79; RESP 20; TEMP 97.4; O2SAT 98
[2025-01-30 05:00] VITALS: BP 104/68; PULSE 75; RESP 16; TEMP 98
[2025-01-30 08:25] LABS: Basophils # (auto) 0 10 ^3/uL (0-0.2); Basophils % (auto) 0.4 % (0.0-2.0); Eosinophils # (auto) 0.1 10 ^3/uL (0-0.8); Eosinophils % (auto) 0.9 % (0.0-7.0); Hematocrit 35.5 % (36.0-46.0); Hemoglobin 12.2 g/dL (12.2-16.2); Mean Corpuscular Hemoglobin 29.7 pg (28.0-32.0); Mean Corpuscular Hgb Conc. 34.5 g/dL (32.0-36.0); Mean Corpuscular Volume 86.1 fL (80.0-100.0); Monocytes # (auto) 0.7 10 ^3/uL (0-1.3); Monocytes % (auto) 7.3 % (0.0-12.0); Neutrophils # (auto) 6.2 10 ^3/uL (1.6-8.6); Neutrophils % (auto) 69.4 % (37.0-80.0); Platelet Count (auto) 234 10^3/uL (140-450); Red Blood Cells 4.13 10^6/uL (4.0-5.20)
[2025-01-30 09:00] VITALS: BP 106/65; PULSE 74; RESP 19; TEMP 99.9; O2SAT 94
--- NOTE | 2025-01-30 12:19 | DVHPN2 ---
Progress Note - Dictate Date Seen: January 30, 2025 Medical Necessity Reason Pt with a Central, PICC or Fol: No Subjective Post op Day # 1 S/P laparoscopic cholecystectomy Patient was seen ambulating in the hallway with her IV pole Continued postop abdominal pain requiring pain medication Labs are stable and liver enzymes normal she is tolerating a clear liquid diet and is feeling better vital signs Vital Sign Date Time Temp Pulse Resp B/P (MAP) Pulse Ox O2 Delivery O2 Flow Rate FiO2 01/30/25 09:15 74 19 106/65 01/30/25 09:00 99.9 94 99.9 01/30/25 08:15 Room Air* 0 21 Total Intake and Output 01/29/25 01/29/25 01/30/25 15:00 23:00 07:00 Intake Total 100 ml 100 ml 150 ml Output Total 40 ml 10 ml Balance 60 ml 90 ml 150 ml medications Current Medications Medications Dose Ordered Sig/Myla Route Start Time Stop Time Status Last Admin Dose Admin Acetaminophen/ Hydrocodone Bitart 1 tab Q4HP PRN PO 01/26/25 08:00 01/30/25 11:47 1 TAB Ondansetron HCl 4 mg Q4HP PRN IV 01/26/25 08:00 01/30/25 06:22 4 MG Docusate Sodium 100 mg BIDPRN PRN PO 01/26/25 08:00 Acetaminophen 650 mg Q6HP PRN PO 01/26/25 08:00 01/28/25 23:59 650 MG Sucralfate 1 gm QID@0600,1130,1700,2200 PO 01/28/25 17:00 01/30/25 11:47 1 GM Potassium Chloride/Dextrose/ Sod Cl 1,000 ml @ 120 mls/hr Q8H20M IV 01/29/25 08:15 01/30/25 01:30 120 MLS/HR Pantoprazole Sodium 40 mg DAILY IV 01/29/25 10:00 01/30/25 08:36 40 MG Cefazolin Sodium/ Dextrose 50 ml @ 50 mls/hr Q8HR IV 01/29/25 14:00 01/30/25 05:20 50 MLS/HR Metronidazole 100 ml @ 100 mls/hr Q8HR IV 01/29/25 14:00 01/30/25 05:19 100 MLS/HR Morphine Sulfate 2 mg Q4HPRN PRN IV 01/29/25 08:45 01/30/25 08:37 2 MG objective General Appearance: Alert, Oriented X3, Cooperative, no distress HEENT: Atraumatic, PERRLA Respiratory: Clear to auscultation, Normal air movement Cardiovascular: Regular rate, Normal S1, Normal S2 Abdominal: Normal bowel sounds, Soft, mild RUQ and epigastric tenderness Extremities: No clubbing, No cyanosis, No edema, Normal pulses, No tenderness/swelling Skin: No rashes, No breakdown, No significant lesion Neuro: Normal gait, Normal speech, Strength at 5/5 X4 ext Psych/Mental Status: Mental status NL, Mood NL laboratory and microbiology Laboratory Tests 01/30/25 07:42 01/27/25 05:21 Test 01/27/25 05:21 Range/Units Serum Glucose 83 74-106 mg/dL Problems(with codes): (1) S/P laparoscopic cholecystectomy (2) S/P gastric sleeve procedure (3) GERD (gastroesophageal reflux disease) (4) Epigastric abdominal pain (5) Cholelithiases Prognosis Plan Advance diet as tolerated Discharge planning as per hospitalist Pain management Dietary Evaluation Review Comments: Avoid fried and fatty food. follow a 2gNa low sugar low fat diet after D/C Expected Outcomes/Goals: gradual wt loss Plan discussed with: Patient PIETRO CHOW MD January 30, 2025 12:19
[2025-01-30 13:00] VITALS: BP 111/68; PULSE 70; RESP 18; TEMP 99.9; O2SAT 92
--- NOTE | 2025-01-30 13:42 | PEER ---
Peer to Peer Review Time DATE: 01/30/25 TIME: 13:40 Review and Recommendations: Discussed case with Dr. García. Decision Approved inpatient Hospital stay on 01/29 and 01/30 given repeated need for IV Morphine. Previous days denied because pt had no elevation in WBC and did not received enough IV narcotics in each 24hr period. DEXTER MUSA NP January 30, 2025 13:42
--- NOTE | 2025-01-30 13:44 | DVHPN2 ---
Subjective Date Seen: January 30, 2025 Post op day Post op day: 1 General: Normal HNT: Normal Cardiovascular: Normal Respiratory: Normal Gastrointestinal: Abdominal Pain Genitourinary: Normal Musculoskeletal: Normal Neurological: Normal Objective Vitals Vital Sign Date Time Temp Pulse Resp B/P (MAP) Pulse Ox O2 Delivery O2 Flow Rate FiO2 01/30/25 09:15 74 19 106/65 01/30/25 09:00 99.9 94 99.9 01/30/25 08:15 Room Air* 0 21 Total Intake and Output 01/29/25 01/29/25 01/30/25 15:00 23:00 07:00 Intake Total 100 ml 100 ml 150 ml Output Total 40 ml 10 ml Balance 60 ml 90 ml 150 ml Medications Current Medications Medications Dose Ordered Sig/Myla Route Start Time Stop Time Status Last Admin Dose Admin Acetaminophen/ Hydrocodone Bitart 1 tab Q4HP PRN PO 01/26/25 08:00 01/30/25 11:47 1 TAB Ondansetron HCl 4 mg Q4HP PRN IV 01/26/25 08:00 01/30/25 06:22 4 MG Docusate Sodium 100 mg BIDPRN PRN PO 01/26/25 08:00 Acetaminophen 650 mg Q6HP PRN PO 01/26/25 08:00 01/28/25 23:59 650 MG Sucralfate 1 gm QID@0600,1130,1700,2200 PO 01/28/25 17:00 01/30/25 11:47 1 GM Potassium Chloride/Dextrose/ Sod Cl 1,000 ml @ 120 mls/hr Q8H20M IV 01/29/25 08:15 01/30/25 01:30 120 MLS/HR Pantoprazole Sodium 40 mg DAILY IV 01/29/25 10:00 01/30/25 08:36 40 MG Cefazolin Sodium/ Dextrose 50 ml @ 50 mls/hr Q8HR IV 01/29/25 14:00 01/30/25 05:20 50 MLS/HR Metronidazole 100 ml @ 100 mls/hr Q8HR IV 01/29/25 14:00 01/30/25 05:19 100 MLS/HR Morphine Sulfate 2 mg Q4HPRN PRN IV 01/29/25 08:45 01/30/25 08:37 2 MG General: Normal, Well developed, Obese Head/Eyes: Normal ENT: Normal Neck: Normal Lungs: Normal Cardiovascular: Normal, Regular rate and rhythm Abdominal: Other (abdomen tender around incision site ) Musculoskeletal: Normal Extremities: Normal Labs and Microbiology Laboratory Tests 01/30/25 07:42 01/27/25 05:21 Test 01/27/25 05:21 Range/Units Serum Glucose 83 74-106 mg/dL Ass/Plan Labs and/or images reviewed: Labs reviewed by me, Image(s) reviewed by me Problem List 01/28/25 patient with severe right upper quadrant abdominal pain and documented gallstones, HIDA scan negative, normal LFT's, laparoscopic possibly open cholecystectomy risks and complications explained in detail Assessment/Plan s/p laparoscopic cholecystectomy patient complaint of abdominal pain tender abdomen around incisions appropriately tender to right and left of abdomen patient also complaint of nausea Plan: patient to ambulate keep diet the same continue IV hydration Prognosis: Good Plan discussed with patient, Dr. Dennison Visit Coding Surgery Date of Service if different f: January 30, 2025 Billing Provider: SARAH DENNISON MD Surgery Visit Codes: [id number] INP/OBS CARE(HIGH) KELLY VALDES DRAWING IN MACHINE TENDER January 30, 2025 13:44
[2025-01-30] MEDS ORDERED: AMOX500T86 PO (14:36)
[2025-01-30] MEDS ORDERED: PERCOT PO (14:36)
--- NOTE | 2025-01-30 15:21 | DVH ---
Exam: CT CT AB PEL WO CON-NO ORAL OR IV History: severe post op abdominal pain. s/p lap luna Comparison Study: CT CT AB PEL WO CON-NO ORAL OR IV on DOS: 01/26/25 TECHNIQUE: Multidetector CT of the abdomen and pelvis without IV contrast. Axial, coronal and sagitta l multiplanar reformats were obtained from the axial data set by the technologist. Radiation Dose Information: CT Dose: CTDI volume is 13.77 mGy. Dose-length product is 726.26 mGy*cm FINDINGS: Trace bilateral pleural effusions with associated atelectasis. Partially visualized heart is unremark able. Minimal pneumoperitoneum which is most likely associated with the recent surgery. Postsurgical changes of cholecystectomy with a right lower abdominal quadrant approach drainage dang ter noted terminating within the gallbladder fossa. Liver, spleen, pancreas and adrenal glands are unremarkable. Kidneys, ureters and urinary bladder are unremarkable. Uterus is unremarkable. Bilateral ovaries are visualized. Postsurgical changes of gastric bypass surgical clips noted over the left upper abdominal quadrant. T he stomach is otherwise unremarkable. The small bowel loops are unremarkable. Appendix is unremarkab le. Moderate to large amount of fecal material within the colon. No evidence of intraperitoneal free fluid. Mild fat stranding over the posterior lower abdominal /up per pelvis mesentery with associated Foci of air which is most likely associated with the recent surg [place] . No evidence of aortic aneurysm. No significant lymphadenopathy. There is subcutaneous fat stranding of the right lower abdominal quadrant adjacent to the drainage ca theter with periumbilical fat stranding which is most likely associated with the recent surgery. No destructive osseous lesions noted. IMPRESSION: Postsurgical changes of recent cholecystectomy with a drainage catheter terminating within the gallbl adder fossa. Minimal intraperitoneal free air which is most likely associated with the recent surgery. Fat stranding with minimal foci of air over the posterior lower abdomen subcutaneous fat which is mos t likely associated with the surgery. Constipation. Trace bilateral pleural effusions with associated atelectasis. Additional findings as above.
[2025-01-30] MEDS: OXYCODONE W/ ACETAMINOPHEN 5/325MG TABLET PO PRN (15:26)
[2025-01-30] MEDS ORDERED: DOCU-94 PO (15:50)
--- NOTE | 2025-01-30 16:09 | DVHDS2 ---
Discharge Summary Date of Admission January 26, 2025 at 08:04 Date of Discharge: January 30, 2025 Admitting Diagnosis Abdominal pain Labs/Diagnostic Data: Laboratory Results Test 01/30/25 07:42 01/27/25 05:21 01/26/25 07:30 01/26/25 04:22 White Blood Count 9.0 10^3/uL (4.4-10.8) Red Blood Count 4.13 10^6/uL (4.0-5.20) Hemoglobin 12.2 g/dL (12.2-16.2) Hematocrit 35.5 % (36.0-46.0) Mean Corpuscular Volume 86.1 fL (80.0-100.0) Mean Corpuscular Hemoglobin 29.7 pg (28.0-32.0) Mean Corpuscular Hemoglobin Concent 34.5 g/dL (32.0-36.0) Red Cell Distribution Width 13.0 % (11.8-14.3) Platelet Count 234 10^3/uL (140-450) Mean Platelet Volume 8.7 fL (6.9-10.8) Neutrophils (%) (Auto) 69.4 % (37.0-80.0) Lymphocytes (%) (Auto) 22.0 % (10.0-50.0) Monocytes (%) (Auto) 7.3 % (0.0-12.0) Eosinophils (%) (Auto) 0.9 % (0.0-7.0) Basophils (%) (Auto) 0.4 % (0.0-2.0) Neutrophils # (Auto) 6.2 10 ^3/uL (1.6-8.6) Lymphocytes # (Auto) 2.0 10 ^3/uL (0.4-5.4) Monocytes # (Auto) 0.7 10 ^3/uL (0-1.3) Eosinophils # (Auto) 0.1 10 ^3/uL (0-0.8) Basophils # (Auto) 0 10 ^3/uL (0-0.2) Nucleated Red Blood Cells 0.0 % Total Bilirubin 0.4 mg/dL (0.2-1.0) Sodium Level 141 mmol/L (136-145) Potassium Level 3.8 mmol/L (3.5-5.1) Chloride Level 108 mmol/L (98-107) Carbon Dioxide Level 24 mmol/L (20-31) Anion Gap 9 (5-15) Blood Urea Nitrogen 6 mg/dL (9-23) Creatinine 0.60 mg/dL (0.550-1.02) Glomerular Filtration Rate Calc 122 mL/min (>90) BUN/Creatinine Ratio 10.0 (10.0-20.0) Serum Glucose 83 mg/dL (74-106) Calcium Level 8.4 mg/dL (8.7-10.4) Aspartate Amino Transferase (AST) 11 U/L (13-40) Alanine Aminotransferase (ALT) 11 U/L (7-40) Alkaline Phosphatase 58 U/L (46-116) Total Protein 5.6 g/dL (5.7-8.2) Albumin 3.6 g/dL (3.2-4.8) Lipase 39 U/L (12-53) Urine Color Light-yellow (Yellow) Urine Clarity Clear (Clear) Urine pH 7.0 (5.0-9.0) Urine Specific [place] 1.018 (1.001-1.035) Urine Protein Negative (Negative) Urine Ketones Negative (Negative) Urine Blood Negative /uL (Negative) Urine Nitrite Negative (Negative) Urine Bilirubin Negative (Negative) Urine Urobilinogen Normal mg/dL (Negative) Urine Leukocyte Esterase Negative /uL (Negative) Urine RBC 5 /hpf (0 - 4) Urine Microscopic WBC 1 /HPF (0-5) Urine Squamous Epithelial Cells Few /hpf (<5) Urine Bacteria None seen /hpf (None Seen) Urine Mucus Few (None Seen) Urine Glucose Normal mg/dL (Normal) Prothrombin Time 10.0 sec (9.3-11.8) Prothrombin Time INR 0.94 (0.9-1.15) Activated Partial Thromboplast Time 24.9 SEC (24.5-34.5) Beta HCG, Quantitative 0.6 mIU/mL (1.5-4.2) Other Laboratory Tests 01/30/25 07:42 01/27/25 05:21 Brief Hx & Hospital Course: History of Present Illness Jeny Chen is a 34-year-old female with past medical history of gastric sleeve, who came to the hospital for abdominal pain. Patient states she began having pain in her RUQ yesterday around 0900. At first she contributed the pain to her gastric sleeve, but when it continued and worsened she became concerned and came to the hospital. She states the pain worsens when she eats and radiates to her back. She last ate yesterday around 1800. She began having nausea and vomiting yesterday about 2100, states she has vomited about 3 times since last night. She states that since she had the gastric sleeve she has abdominal pain at times and belches frequently. Course of hospitalization: Patient was assessed by General surgery. Patient was also seen by Gastroenterology. Patient underwent EGD without any acute findings. Patient also had laparoscopic cholecystectomy with findings of acute cholecystitis. Postoperatively the patient had difficulty with pain management, which was achieved with Percocet. Patient was also found to be severely constipated which was discussed with the patient. Patient will be discharged home and follow up with the discharge Clinic in one week given she has no PCP. She will also follow up with Dr. Dennison in 1-2 weeks. Patient will be educated on how to do wound care by the primary nurse as well as emptying SYEDA drain. She will be continued on antibiotic therapy with Augmentin 500 mg p.o. b.i.d. for seven days as well as continuation of current pain management as well as Colace 100 mg p.o. b.i.d.. Patient has been verbalized understanding. All questions answered Physical examination General: Alert and Oriented x3. No acute distress. Well-nourished. Eyes: EOMI. Anicteric. HENT: Moist mucous membranes. Lungs: Clear to auscultation bilaterally. No accessory muscle use. Cardiovascular: Regular rate and rhythm. No murmur. No JVD. Abdomen: Soft, non-tender and non-distended. No palpable masses. Extremities: No edema. Non-tender. Skin: No rashes or lesions. Warm. Neurologic: No focal neurological deficits. CN II-XII grossly intact, but not individually tested. Psychiatric: Cooperative. Appropriate mood and affect. Total time spent with patient discussing and formulating plan of care: 35 minutes. This medical document was created using an electronic medical record system with [employer] system. Although this document has been carefully reviewed, there may still be some phonetic and typographical errors. These areas are purely typographical due to imperfections of the software programs, and do not reflect any compromise in the patient's medical care. Condition at Discharge: Fair Final Diagnosis/Problems List Acute Cholecystitis Secondary diagnosis: Obesity -cholelithiasis -obesity -hx of gastric sleeve Discharge Disposition: Home Discharge Instruct/Medications Diet: Regular Activity: See Comment Activity comment: Don't lift anything greater than 5lbs x 2 weeks Follow Up/Referral: Dr. Dennison in 1-2 weeks [place] [facility] in 1 week Medications: Augmentin 500 mg po bid x 7 days Colace 100 mg po bid x 7 days Percocet 5/325mg po q8hr prn pain 36 Discharge Statement: "Patient was advised to return to the ER or call 911 if any headaches, dizziness, shortness of breath, chest pain, abdominal pain, bleeding, fevers, or worsening of medical condition. Patient was counseled about treatment plan, medications, possible side effects, patientverbalized understanding. All questions were answered to the best of my ability. This discharge took greater then 30 minutes in planning, reviewing documentation, counseling the patient, and discussing with other team members." ASSESSMENT ASSESSMENT Assessment Acute Cholecystitis Date of Service: January 30, 2025 Billing Provider: DETXER MUSA NP Common Visit Codes: 30303-RJL/OBS DISCH DAY >30min DEXTER MUSA NP January 30, 2025 16:09
== END 2025-01-30 17:43 | disposition home or self-care (01) | DRG 419 ==
LOC: ER 03:37 → OVERFLOW 08:04 → EAST 18:02
PROVIDERS: ADMIT Nurse Practitioner Acute Care; ATTEND Nurse Practitioner Acute Care
PROC: 0DB98ZX Excision of Duodenum, Via Natural or Artificial Opening Endoscopic, Diagnostic (ICD-10-PCS; 2025-01-28)
PROC: 0FT44ZZ Resection of Gallbladder, Percutaneous Endoscopic Approach (ICD-10-PCS; principal; 2025-01-29 07:21)
DX: K80.00 Calculus of gallbladder with acute cholecystitis without obstruction (principal); K29.90 Gastroduodenitis, unspecified, without bleeding; E66.9 Obesity, unspecified; Z68.31 Body mass index [BMI] 31.0-31.9, adult; K82.8 Other specified diseases of gallbladder; K21.9 Gastro-esophageal reflux disease without esophagitis; Z98.84 Bariatric surgery status; Z83.3 Family history of diabetes mellitus; Z82.49 Family history of ischemic heart disease and other diseases of the circulatory system; Z82.3 Family history of stroke
CPT/HCPCS: 36415; 71045; 74176; 76705; 78226; 80053; 81001; 82247; 83690; 84702; 85025; 85610; 85730; 86850; 86900; 86901; 87070; 87075; 96361; 96374; 96375; G0378; J0131; J0330; J1100; J1885; J2250; J2405; J2470; J2704; J3490